=== PATIENT | female | born 1930 | race Caucasian/White ===

== ENCOUNTER 2017-11-04 16:51 | Inpatient (IN) | payer MEDICARE, BC ==
[~2017-11-04] VITALS: Ht 167.6 cm; Wt 62.6 kg
[~2017-11-04 16:51] MED LIST: ALENDRONAT70 MG/75 M PO; ASPIR-LOW81 MG ORAL; AZOPT10 ML OP; BENAZEPRIL HCL10 MG ORAL; BENAZEPRIL-HCT1 EACH ORAL; CALCIUM600 M1 PO; CEROVITE SENIO1 EACH PO; COMBIGAN EYE DRO5 ML BOTH EYES; GALANTAMINE HBR16 MG PO; HYDROCHLOROTH12.5 MG ORAL; LATANOPROST2.5 ML BOTH EYES; LEVOTHYROXINE200 MCG IV; LEVOTHYROXINE50 MCG ORAL; NAMENDA XR28 MG PO; NAMENDA5 MG ORAL; NIACIN ER500 M1 PO; NIACIN100 MG ORAL; PRESERVISION A1 EAC2 PO; PRESERVISION A1 EACH PO; PROTONIX40 MG ORAL; TYLENOL650 MG/20. ORAL; VITAMIN D1000 UNI1 ORAL; VITAMIN D400 INTLU ORAL; ZOLOFT100 MG ORAL
[2017-11-04 20:00] VITALS: BP 122/61
[2017-11-04] MEDS ORDERED: HydrALAZINE 25mg tab ORAL PRN (21:45)
--- NOTE | 2017-11-04 21:51 | History & Physical ---
History and Physical History & Physicial transfer from [facility] for Pneumonia Low BP 1. HCAP , rule out aspiration 2. UTI 3. sepsis due to the above. 4. skin pressure wound patient was significant for dementia, psych history, ulcer, neuropathy, history of shingles, chronic back pain, osteopenia, vitamin D deficiency, hypothyroidism, hyperlipemia, hypertension, seizure disorders, hypertension. # [id number] ROD VINCENT Nov 04, 2017 21:50
[2017-11-05] VITALS (7 sets, daily range): BP systolic 127–150; BP diastolic 67–96
[2017-11-05] MEDS ORDERED: cefTRIAXone 1 GM in D5W 55 ML IVPB SCH ×2
[2017-11-05 01:34] LABS: APPEARANCE,URINE CLOUDY; BILIRUBIN, URINE NEGATIVE (NEGATIVE); COLOR,URINE PALE YELLOW; GLUCOSE, URINE (UA) NEGATIVE (NEGATIVE); KETONES,URINE NEGATIVE (NEGATIVE); LEUKOCYTE ESTERASE ,URINE 3+ (NEGATIVE); NITRITE,URINE NEGATIVE (NEGATIVE); PH,URINE 5 (4.5-8.0); PROTEIN,URINE 2+ (NEGATIVE); UROBILINOGEN,URINE NORMAL MG/DL (0.0-1.0)
[2017-11-05 07:56] LABS: BASOPHILS % (AUTO) 0.4 % (0.0-2.0); EOSINOPHILS % (AUTO) 0.3 % (0.0-3.0); HEMOGLOBIN 11.5 G/DL (12.0-16.0); LYMPHOCYTES % (AUTO) 11.9 % (20.0-45.0); MEAN CORPUSCULAR VOLUME 90 FL (80-99); MONOCYTES % (AUTO) 9.6 % (1.0-10.0); NEUTROPHILS % (AUTO) 77.7 % (45.0-75.0); PLATELET COUNT 293 K/UL (150-450); RED BLOOD COUNT 3.98 M/UL (4.20-5.40); RED CELL DISTRIBUTION WIDTH 12.2 % (11.6-14.8); WHITE BLOOD COUNT 12.8 K/UL (4.8-10.8)
[2017-11-05 08:25] LABS: ALANINE AMINOTRANSFERASE 14 U/L (12-78); ALBUMIN/GLOBULIN RATIO 0.9 (1.0-2.7); ALKALINE PHOSPHATASE 54 U/L (46-116); ANION GAP 5 mmol/L (5-15); ASPARTATE AMINO TRANSFERASE 25 U/L (15-37); BILIRUBIN,TOTAL 0.6 MG/DL (0.2-1.0); BLOOD UREA NITROGEN 20 mg/dL (7-18); CALCIUM 9.2 MG/DL (8.5-10.1); CARBON DIOXIDE 29 MMOL/L (21-32); CHLORIDE 104 MMOL/L (98-107); CHOLESTEROL 139 MG/DL (< 200); CREATININE 0.8 MG/DL (0.55-1.30); GAMMA GLUTAMYL TRANSPEPTIDASE 21 U/L (5-85); HDL CHOLESTEROL 63 MG/DL (40-60); PHOSPHORUS 2.8 MG/DL (2.5-4.9); POTASSIUM 3.5 MMOL/L (3.5-5.1); SODIUM 138 MMOL/L (136-145); TRIGLYCERIDES 44 MG/DL (30-150)
[2017-11-05] MEDS: Aspirin EC 81mg tab ORAL SCH (09:18)
[2017-11-05] MEDS: Benazepril 10mg tab ORAL SCH (09:18)
[2017-11-05] MEDS: Heparin 5000 units/ml inj SUBQ SCH ×2 (09:19→20:33)
--- NOTE | 2017-11-05 09:46 | Consultation ---
Consult Note Assessment/Plan ASSESSMENT: 1. HCAP , rule out aspiration 2. UTI 3. sepsis due to the above. RECOMMENDATIONS: 1. send blood culture x2 2. send sputum culture 3. start vancomycin with cefepime empiric coverage 4. swallow eval when awake full dictation report to follow Steve De Leon M.D. Nov 05, 2017 09:46
[2017-11-05] MEDS: Sertraline 50mg tab ORAL SCH (10:49)
--- NOTE | 2017-11-05 11:39 | Consultation ---
History of Present Illness General Date patient seen: Nov 05, 2017 Chief Complaint: Dyspnea purulent bronchitis pnuemonia Referring physician: Dr. Bedoya Reason for Consultation: Health care associated pneumonia Present Illness HPI Patient is a pleasant 87 yo female with pmhx shingles, chronic back pain, osteopenia, vitamin D deficiency, hypothyroidism, hyperlipemia, hypertension, dementia, seizure disorders who presents from [facility] for insurance purposes the remainder of the patients hospitalization will be conducted here, the patient appears very toxic appearing and coughs profously during the interview with a rhoncus congested sounding cough without aid of a stethoscope. Initial CXR in the emergency room reveals maria esther right upper lobe, and the patient is being admitted to the hospital for sepsis urinary tract infection and health care associated pneumonia and possible aspiration pneumonia. I was asked to consult from respiratory point of view. The patient has been initiated on broad spectrum empiric antibiotics to treat her very serious conditions, also cultures of the patients sputum, blood and urine will be utilized to combat a likely concomittant infectious culprit. Allergies: Coded Allergies: DULOXETINE (Verified Allergy, Unknown, 09/15/16) Medication History Scheduled Alendronate Sodium (Alendronate Sodium), 70 MG PO 1xweek, (Reported) Aspirin* (Aspir-Low*), 81 MG ORAL DAILY, (Reported) Benazepril Hcl* (Benazepril Hcl*), 10 MG ORAL DAILY Benazepril/Hydrochlorothiazide (Benazepril-Hctz 10-12.5 Mg Tab), 1 TAB ORAL DAILY, (Reported) Brimonidine Tartrate/Timolol (Combigan Eye Drops), 5 ML BOTH EYES BID, (Reported ) Brinzolamide (Azopt), 10 ML OP BID, (Reported) Calcium Carbonate (Calcium), 600 MG PO DAILY, (Reported) Galantamine Hbr (Galantamine Hbr), 16 MG PO with breakfast, (Reported) Hydrochlorothiazide* (Hydrochlorothiazide*), 12.5 MG ORAL DAILY, (Reported) Latanoprost* (Xalatan*), 1 DROP BOTH EYES BEDTIME, (Reported) Levothyroxine Sodium* (Levothyroxine Sodium*), 50 MCG ORAL DAILY, (Reported) Memantine Hcl (Namenda Xr), 28 MG PO BEDTIME, (Reported) Multivitamin W-Minerals/Lutein (Cerovite Senior Tablet), 1 EACH PO DAILY, ( Reported) Niacin* (Niacin*), 250 MG ORAL BID, (Reported) Pantoprazole* (Protonix*), 40 MG ORAL DAILY Sertraline Hcl* (Zoloft*), 100 MG ORAL DAILY, (Reported) Vit A/Vit C/Vit E/Zinc/Copper (Preservision Areds Softgel), 1 EACH PO BID, ( Reported) Vitamin D (Vitamin D3), 1,000 UNITS ORAL DAILY, (Reported) Scheduled PRN Acetaminophen (Acetaminophen), 500 MG ORAL Q6H PRN for Prn Headache/Temp > 101, (Reported) Patient History Healthcare decision maker Thao Aviles Resuscitation status Full Code Advanced Directive on File Yes Past Medical/Surgical History Past Medical/Surgical History: (1) Dementia (2) Hypotension (3) Pneumonia (4) At high risk for aspiration (5) Fever (6) Sepsis (7) UTI (urinary tract infection) (8) Hypotension (9) HCAP (healthcare-associated pneumonia) (10) Fall (11) MRSA colonization (12) Acute respiratory failure Review of Systems Constitutional: Reports: fever, malaise, weakness Respiratory: Reports: cough, shortness of breath, sputum Genitourinary: Reports: dysuria Physical Exam General Appearance: mild distress Lines, tubes and drains: peripheral HEENT: normocephalic, atraumatic, anicteric, PERRL Neck: non-tender, normal alignment, supple, normal inspection Respiratory/Chest: chest wall non-tender, lungs clear, normal breath sounds, no respiratory distress, no accessory muscle use Breasts: no masses Cardiovascular/Chest: normal peripheral pulses, normal rate, regular rhythm, no JVD Abdomen: normal bowel sounds, non tender, soft, no organomegaly, no mass Genitourinary/Rectal: normal genital exam, normal rectal exam Extremities: normal range of motion, non-tender, normal inspection, no calf tenderness Skin Exam: normal pigmentation, warm/dry 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, responsive, disoriented Musculoskeletal: atrophy Last 24 Hour Vital Signs Date Time Temp Pulse Resp B/P (MAP) Pulse Ox O2 Delivery O2 Flow Rate FiO2 11/05/17 09:18 133/81 11/05/17 09:17 Room Air 11/05/17 08:00 98.1 89 20 133/81 96 11/05/17 03:35 97.3 86 20 130/69 94 11/05/17 00:00 97.4 73 19 127/69 94 11/05/17 00:00 94 Room Air 11/04/17 20:00 98.1 75 19 122/61 94 Intake and Output 11/04/17 11/05/17 19:00 07:00 Intake Total 405 ml Output Total 350 ml Balance 55 ml Intake IV Total 405 ml Output Urine Total 350 ml # Voids 2 Laboratory Tests Test 11/04/17 22:06 11/04/17 23:45 11/05/17 07:10 C-Reactive Protein, Quantitative 12.5 mg/dL (0.00-0.90) H Urine Color Pale yellow Urine Appearance Cloudy Urine pH 5 (4.5-8.0) Urine Specific [place] 1.020 (1.005-1.035) Urine Protein 2+ (NEGATIVE) H Urine Glucose (UA) Negative (NEGATIVE) Urine Ketones Negative (NEGATIVE) Urine Occult Blood 5+ (NEGATIVE) H Urine Nitrite Negative (NEGATIVE) Urine Bilirubin Negative (NEGATIVE) Urine Urobilinogen Normal MG/DL (0.0-1.0) Urine Leukocyte Esterase 3+ (NEGATIVE) H Urine RBC Tntc /HPF (0 - 2) H Urine WBC 20-30 /HPF (0 - 2) H Urine Squamous Epithelial Cells Moderate /LPF (NONE/OCC) H Urine Bacteria Moderate /HPF (NONE) H Urine Mucus Few /LPF (NONE/OCC) H White Blood Count 12.8 K/UL (4.8-10.8) H Red Blood Count 3.98 M/UL (4.20-5.40) L Hemoglobin 11.5 G/DL (12.0-16.0) L Hematocrit 36.0 % (37.0-47.0) L Mean Corpuscular Volume 90 FL (80-99) Mean Corpuscular Hemoglobin 29.0 PG (27.0-31.0) Mean Corpuscular Hemoglobin Concent 32.1 G/DL (32.0-36.0) Red Cell Distribution Width 12.2 % (11.6-14.8) Platelet Count 293 K/UL (150-450) Mean Platelet Volume 5.5 FL (6.5-10.1) L Neutrophils (%) (Auto) 77.7 % (45.0-75.0) H Lymphocytes (%) (Auto) 11.9 % (20.0-45.0) L Monocytes (%) (Auto) 9.6 % (1.0-10.0) Eosinophils (%) (Auto) 0.3 % (0.0-3.0) Basophils (%) (Auto) 0.4 % (0.0-2.0) Sodium Level 138 MMOL/L (136-145) Potassium Level 3.5 MMOL/L (3.5-5.1) Chloride Level 104 MMOL/L (98-107) Carbon Dioxide Level 29 MMOL/L (21-32) Anion Gap 5 mmol/L (5-15) Blood Urea Nitrogen 20 mg/dL (7-18) H Creatinine 0.8 MG/DL (0.55-1.30) Estimat Glomerular Filtration Rate mL/min (>60) Glucose Level 97 MG/DL (74-106) Hemoglobin A1c 5.7 % (4.3-6.0) Uric Acid 4.6 MG/DL (2.6-7.2) Calcium Level 9.2 MG/DL (8.5-10.1) Phosphorus Level 2.8 MG/DL (2.5-4.9) Magnesium Level 1.6 MG/DL (1.8-2.4) L Total Bilirubin 0.6 MG/DL (0.2-1.0) Gamma Glutamyl Transpeptidase 21 U/L (5-85) Aspartate Amino Transf (AST/SGOT) 25 U/L (15-37) Alanine Aminotransferase (ALT/SGPT) 14 U/L (12-78) Alkaline Phosphatase 54 U/L (46-116) Pro-B-Type Natriuretic Peptide 1679 pg/mL (0-125) H Total Protein 6.2 G/DL (6.4-8.2) L Albumin 3.0 G/DL (3.4-5.0) L Globulin 3.2 g/dL Albumin/Globulin Ratio 0.9 (1.0-2.7) L Triglycerides Level 44 MG/DL (30-150) Cholesterol Level 139 MG/DL (< 200) LDL Cholesterol 69 mg/dL (<100) HDL Cholesterol 63 MG/DL (40-60) H Cholesterol/HDL Ratio 2.2 (3.3-4.4) L Thyroid Stimulating Hormone (TSH) 0.132 uiU/mL (0.358-3.740) Height (Feet): 5 Height (Inches): 6.00 Weight (Pounds): 138 Medications Current Medications Medications (Trade) Dose Ordered Sig/Uday Route PRN Reason Start Time Stop Time Status Last Admin Dose Admin Acetaminophen (Tylenol) 500 mg Q6H PRN ORAL Prn Headache/Temp > 101 11/04/17 23:15 12/04/17 23:14 Aspirin (Ecotrin) 81 mg DAILY ORAL 11/05/17 09:00 12/05/17 08:59 11/05/17 09:18 Benazepril HCl (Lotensin) 10 mg DAILY ORAL 11/05/17 09:00 12/05/17 08:59 11/05/17 09:18 Cefepime HCl 2 gm/ Dextrose 55 ml @ 110 mls/hr Q24H IVPB 11/05/17 21:00 11/12/17 20:59 Dextrose/Sodium Chloride 1,000 ml @ 50 mls/hr Q20H IV 11/05/17 00:00 12/05/17 00:00 11/05/17 00:00 Heparin Sodium (Porcine) (Heparin 5000 units/ml) 5,000 units EVERY 12 HOURS SUBQ 11/05/17 09:00 12/05/17 08:59 11/05/17 09:19 Hydralazine HCl (Apresoline) 25 mg Q4HR PRN ORAL bp over 160 syst 11/04/17 21:45 12/04/17 21:44 Latanoprost (Xalatan) 1 drop BEDTIME BOTH EYES 11/05/17 21:00 12/05/17 20:59 Levothyroxine Sodium (Synthroid) 50 mcg ACBREAKFAST ORAL 11/05/17 06:30 12/05/17 06:29 11/05/17 05:48 Magnesium Sulfate 100 ml @ 100 mls/hr Q1H IVPB 11/05/17 11:00 11/05/17 12:59 Ondansetron HCl (Zofran) 4 mg Q6H PRN IVP Nausea & Vomiting 11/04/17 21:45 12/04/17 21:44 Pantoprazole (Protonix) 40 mg DAILY ORAL 11/05/17 09:00 12/05/17 08:59 11/05/17 09:18 Sertraline HCl (Zoloft) 50 mg DAILY ORAL 11/05/17 10:00 12/05/17 09:59 11/05/17 10:49 Vancomycin HCl (Vanco rx to dose) 1 ea DAILY PRN MISC Per rx protocol 11/05/17 11:00 12/05/17 10:59 Vancomycin HCl 1 gm/Dextrose 275 ml @ 183.708 mls/hr Q24H IVPB 11/05/17 12:00 11/10/17 11:59 Assessment/Plan Problem List: (1) Pneumonia ICD Codes: J18.9 - Pneumonia, unspecified organism SNOMED: 483833134 Qualifiers: Qualified Codes: J69.0 - Pneumonitis due to inhalation of food and vomit (2) At high risk for aspiration ICD Codes: Z91.89 - Other specified personal risk factors, not elsewhere classified SNOMED: 132641342 (3) Hypotension ICD Codes: I95.9 - Hypotension, unspecified SNOMED: 59883509 Qualifiers: Qualified Codes: I95.9 - Hypotension, unspecified (4) Dementia ICD Codes: F03.90 - Unspecified dementia without behavioral disturbance SNOMED: 86656173 Qualifiers: Qualified Codes: F03.91 - Unspecified dementia with behavioral disturbance Status: not improved Assessment/Plan respiratory treatment panculture titrate fio2 to sat of 92% check cultures abx dvt prophylaxis. ANNETTE ANDERSON Nov 05, 2017 11:39
[2017-11-05] MEDS: Vancomycin 1gm/D5W 275ml IVPB SCH ×2 (12:30)
--- NOTE | 2017-11-05 18:18 | History and Physical Report ---
DATE OF ADMISSION: 11/04/2017 HISTORY OF PRESENT ILLNESS: The patient is an 87-year-old female, who was transferred to [place] [facility] with vague history of weakness. After the patient was evaluated there, I received a call that the patient had leukocytosis, evidence of pneumonia, and UTI. The patient is now transferred here for further management from [facility]. PAST MEDICAL HISTORY: Past history of the patient is significant for dementia, psychiatric history, polyneuropathy, ulcers, history of shingles, chronic back pain, osteopenia, vitamin D deficiency, hypothyroidism, hyperlipemia, hypertension, seizure disorder, and glaucoma. ALLERGIES: To duloxetine. PHYSICAL EXAMINATION: VITAL SIGNS: On examination today, the patient was found to have a temperature of 98.1 degrees, pulse rate of 89, blood pressure of 133/81. GENERAL: Poor historian, not in any distress. HEENT: Head is normocephalic. Sclerae not icteric. LUNGS: No wheeze. Decreased breath sounds over the bases. BREASTS: Area of right breast mastectomy and scar over the left shoulder. HEART: Regular with occasional irregular beats. ABDOMEN: Soft. EXTREMITIES: Lower extremities, no edema. Weak extremities. LABORATORY AND DIAGNOSTIC DATA: The lab data for today at [place] is C-reactive protein of 12.5. Pro-natriuretic peptic assay of 1679. TSH of 0.1. Urine shows 30 WBCs, 3+ leukocyte esterase. of 12.8 and hemoglobin of 11.5. IMPRESSION: This patient has pneumonia, which aspiration needs to be ruled out based on chest x-ray at [place]. The patient has evidence of urinary tract infection and also the patient has past history of dementia, seizure disorder, hypertension, hyperlipemia, hypothyroidism, vitamin D deficiency, shingles, and psychiatric history. PLAN: The Infectious Disease sap consultant has put the patient on cefepime and vancomycin. At this point, we will give breathing treatment and we will monitor the labs and according to how the patient's condition evolves, we will make the proper changes in our future management. Robson Montero M.D. DR: Adelfo JOB#: [id number] CC:
[2017-11-05] MEDS: Acetaminophen 500mg (ES) tab ORAL PRN (18:29)
[2017-11-05] MEDS: D5NS 1,000 ML IV SCH ×3 (20:00→23:00)
[2017-11-05] MEDS: Cefepime HCl 2 GM in D5W 55 ML IVPB SCH (20:28)
[2017-11-05] MEDS: Latanoprost 0.005% Opth 2.5ml Soln BOTH EYES SCH (21:11)
[2017-11-06] VITALS: BP 158/86
[2017-11-06 04:00] VITALS: BP 154/93
[2017-11-06 07:48] VITALS: BP 161/86
[2017-11-06 08:16] LABS: BASOPHILS % (AUTO) 0.4 % (0.0-2.0); EOSINOPHILS % (AUTO) 0.1 % (0.0-3.0); HEMATOCRIT 39.5 % (37.0-47.0); LYMPHOCYTES % (AUTO) 6.7 % (20.0-45.0); MEAN CORPUSCULAR VOLUME 90 FL (80-99); MONOCYTES % (AUTO) 8.5 % (1.0-10.0); NEUTROPHILS % (AUTO) 84.3 % (45.0-75.0); PLATELET COUNT 287 K/UL (150-450); RED BLOOD COUNT 4.38 M/UL (4.20-5.40); WHITE BLOOD COUNT 14.9 K/UL (4.8-10.8)
[2017-11-06 08:43] LABS: ALANINE AMINOTRANSFERASE 19 U/L (12-78); ALBUMIN 3.2 G/DL (3.4-5.0); ALBUMIN/GLOBULIN RATIO 0.8 (1.0-2.7); ALKALINE PHOSPHATASE 70 U/L (46-116); ANION GAP 11 mmol/L (5-15); ASPARTATE AMINO TRANSFERASE 27 U/L (15-37); BLOOD UREA NITROGEN 12 mg/dL (7-18); CALCIUM 9.3 MG/DL (8.5-10.1); CARBON DIOXIDE 24 MMOL/L (21-32); CHLORIDE 101 MMOL/L (98-107); CREATININE 0.7 MG/DL (0.55-1.30); POTASSIUM 3.7 MMOL/L (3.5-5.1); SODIUM 136 MMOL/L (136-145)
[2017-11-06] MEDS: Aspirin EC 81mg tab ORAL SCH (09:53)
[2017-11-06] MEDS: Benazepril 10mg tab ORAL SCH ×2 (09:54→17:29)
[2017-11-06] MEDS: Sertraline 50mg tab ORAL SCH (09:54)
[2017-11-06] MEDS: Heparin 5000 units/ml inj SUBQ SCH ×2 (09:55→20:07)
[2017-11-06] MEDS: Vancomycin 1gm/D5W 275ml IVPB SCH ×2 (11:35)
--- NOTE | 2017-11-06 11:49 | Diagnostic Imaging Report ---
Indication: Cough Technique: One view of the chest Comparison: 09/15/2016 Findings: There is persistent elevation of the right hemidiaphragm. Suspect that there is now some pleural fluid present. Interstitial opacities are again demonstrated bilaterally, appears somewhat more pronounced than on the prior study. There is some hazy airspace opacity in the right upper lobe The heart size is difficult to assess, probably upper limits of normal. Degenerative changes of the right shoulder and postsurgical changes of left shoulder are again noted Impression: Suspect mostly chronic interstitial disease, but component of acute interstitial edema or other process Possible hazy infiltrate in the right upper lobe. Correlate with clinical findings Suspect right pleural effusion
[2017-11-06 12:00] VITALS: BP 153/89
--- NOTE | 2017-11-06 14:13 | Infectious Diseases Prog Note ---
Assessment/Plan Problems: (1) HCAP (healthcare-associated pneumonia) Assessment & Plan: continue vancomycin and cefepime empiric coverage pending sputum culture, repeat CXR , start neb therapy (2) UTI (urinary tract infection) Assessment & Plan: continue cefepime pending culture results (3) Sepsis Assessment & Plan: due to the above, on wide spectrum antibiotics pending blood culture (4) Fever Assessment & Plan: improved , continue antibiotics and tylenol (5) Hypotension Assessment & Plan: rule out sepsis , continue antibiotics pending culture Subjective ROS Limited/Unobtainable: Yes Allergies: Coded Allergies: DULOXETINE (Verified Allergy, Unknown, 09/15/16) Subjective she was up in bed, awake and alert, follows some commands, had mild SOB, no cough , no fever or chills today , no diarrhea . Objective Vital Signs Last 24 Hour Vital Signs Date Time Temp Pulse Resp B/P (MAP) Pulse Ox O2 Delivery O2 Flow Rate FiO2 11/06/17 12:00 98.4 88 18 153/89 94 Nasal Cannula 2.0 11/06/17 09:54 161/86 11/06/17 07:48 98.6 95 18 161/86 95 Nasal Cannula 2.0 11/06/17 04:00 99.3 90 20 154/93 93 Nasal Cannula 2.0 11/06/17 00:00 98.4 95 20 158/86 92 Room Air 11/05/17 20:00 Room Air 11/05/17 20:00 97.9 100 21 150/91 88 11/05/17 19:28 97.9 11/05/17 18:40 101.8 106 20 145/67 92 11/05/17 16:00 98.4 114 20 143/96 94 Height (Feet): 5 Height (Inches): 6.00 Weight (Pounds): 138 General Appearance: WD/WN, no acute distress HEENT: normocephalic, atraumatic, anicteric, mucous membranes moist, PERRL, supple, no JVD Respiratory/Chest: chest wall non-tender, no respiratory distress, no accessory muscle use, decreased breath sounds, inspiratory wheezing Cardiovascular: normal peripheral pulses, normal rate, regular rhythm, no gallop/murmur, no JVD Abdomen: normal bowel sounds, soft, non tender, no organomegaly, non distended , no mass, no scars Extremities: no cyanosis, no clubbing Skin: no rash, no lesions, no ulcers Neurologic/Psychiatric: alert, responsive Lymphatic: no neck adenopathy, no groin adenopathy Microbiology Date/Time Source Procedure Growth Status 11/04/17 23:45 Indwelling Cath Urine Culture - Preliminary NO GROWTH AFTER 24 HOURS Resulted Laboratory Tests Test 11/06/17 05:25 White Blood Count 14.9 K/UL (4.8-10.8) H Red Blood Count 4.38 M/UL (4.20-5.40) Hemoglobin 13.0 G/DL (12.0-16.0) Hematocrit 39.5 % (37.0-47.0) Mean Corpuscular Volume 90 FL (80-99) Mean Corpuscular Hemoglobin 29.6 PG (27.0-31.0) Mean Corpuscular Hemoglobin Concent 32.9 G/DL (32.0-36.0) Red Cell Distribution Width 12.0 % (11.6-14.8) Platelet Count 287 K/UL (150-450) Mean Platelet Volume 5.5 FL (6.5-10.1) L Neutrophils (%) (Auto) 84.3 % (45.0-75.0) H Lymphocytes (%) (Auto) 6.7 % (20.0-45.0) L Monocytes (%) (Auto) 8.5 % (1.0-10.0) Eosinophils (%) (Auto) 0.1 % (0.0-3.0) Basophils (%) (Auto) 0.4 % (0.0-2.0) Sodium Level 136 MMOL/L (136-145) Potassium Level 3.7 MMOL/L (3.5-5.1) Chloride Level 101 MMOL/L (98-107) Carbon Dioxide Level 24 MMOL/L (21-32) Anion Gap 11 mmol/L (5-15) Blood Urea Nitrogen 12 mg/dL (7-18) Creatinine 0.7 MG/DL (0.55-1.30) Estimat Glomerular Filtration Rate mL/min (>60) Glucose Level 111 MG/DL (74-106) H Calcium Level 9.3 MG/DL (8.5-10.1) Total Bilirubin 1.0 MG/DL (0.2-1.0) Aspartate Amino Transf (AST/SGOT) 27 U/L (15-37) Alanine Aminotransferase (ALT/SGPT) 19 U/L (12-78) Alkaline Phosphatase 70 U/L (46-116) Pro-B-Type Natriuretic Peptide 4886 pg/mL (0-125) H Total Protein 7.2 G/DL (6.4-8.2) Albumin 3.2 G/DL (3.4-5.0) L Globulin 4.0 g/dL Albumin/Globulin Ratio 0.8 (1.0-2.7) L Current Medications Medications (Trade) Dose Ordered Sig/Uday Route PRN Reason Start Time Stop Time Status Last Admin Dose Admin Acetaminophen (Tylenol) 500 mg Q6H PRN ORAL Prn Headache/Temp > 101 11/04/17 23:15 12/04/17 23:14 11/05/17 18:29 Albuterol/ Ipratropium (Albuterol/ Ipratropium) 3 ml Q6HR PRN HHN Shortness of Breath 11/06/17 13:15 11/11/17 13:14 Aspirin (Ecotrin) 81 mg DAILY ORAL 11/05/17 09:00 12/05/17 08:59 11/06/17 09:53 Benazepril HCl (Lotensin) 10 mg DAILY ORAL 11/05/17 09:00 12/05/17 08:59 11/06/17 09:54 Cefepime HCl 2 gm/ Dextrose 55 ml @ 110 mls/hr Q24H IVPB 11/05/17 21:00 11/12/17 20:59 11/05/17 20:28 Dextrose/Sodium Chloride 1,000 ml @ 50 mls/hr Q20H IV 11/05/17 00:00 12/05/17 00:00 11/05/17 23:00 Heparin Sodium (Porcine) (Heparin 5000 units/ml) 5,000 units EVERY 12 HOURS SUBQ 11/05/17 09:00 12/05/17 08:59 11/06/17 09:55 Hydralazine HCl (Apresoline) 25 mg Q4HR PRN ORAL bp over 160 syst 11/04/17 21:45 12/04/17 21:44 Latanoprost (Xalatan) 1 drop BEDTIME BOTH EYES 11/05/17 21:00 12/05/17 20:59 11/05/17 21:11 Levothyroxine Sodium (Synthroid) 50 mcg ACBREAKFAST ORAL 11/05/17 06:30 12/05/17 06:29 11/06/17 06:27 Ondansetron HCl (Zofran) 4 mg Q6H PRN IVP Nausea & Vomiting 11/04/17 21:45 12/04/17 21:44 Pantoprazole (Protonix) 40 mg DAILY ORAL 11/05/17 09:00 12/05/17 08:59 11/06/17 09:54 Sertraline HCl (Zoloft) 50 mg DAILY ORAL 11/05/17 10:00 12/05/17 09:59 11/06/17 09:54 Vancomycin HCl (Vanco rx to dose) 1 ea DAILY PRN MISC Per rx protocol 11/05/17 11:00 12/05/17 10:59 Vancomycin HCl 1 gm/Dextrose 275 ml @ 183.708 mls/hr Q24H IVPB 11/05/17 12:00 11/10/17 11:59 11/06/17 11:35 Steve De Leon M.D. Nov 06, 2017 14:12
[2017-11-06 16:00] VITALS: BP 153/99
--- NOTE | 2017-11-06 16:27 | General Progress Note ---
Assessment/Plan Problem List: (1) Pneumonia ICD Codes: J18.9 - Pneumonia, unspecified organism SNOMED: 402360000 (2) Hypotension ICD Codes: I95.9 - Hypotension, unspecified SNOMED: 14030186 (3) UTI (urinary tract infection) ICD Codes: N39.0 - Urinary tract infection, site not specified SNOMED: 27250680 (4) At high risk for aspiration ICD Codes: Z91.89 - Other specified personal risk factors, not elsewhere classified SNOMED: 220222194 (5) Dementia ICD Codes: F03.90 - Unspecified dementia without behavioral disturbance SNOMED: 59411648 Status: unchanged Status Narrative pneumonia, which aspiration needs to be ruled out The patient has evidence of urinary tract infection . Presented with LOw BP dementia, seizure disorder, hypertension, hyperlipemia, hypothyroidism, vitamin D deficiency, shingles, and psychiatric history. Assessment/Plan AntiBiotics St eval. pulmonary toilet monitor labs Subjective ROS Limited/Unobtainable: No Constitutional: Reports: malaise, weakness Allergies: Coded Allergies: DULOXETINE (Verified Allergy, Unknown, 09/15/16) Objective Last 24 Hour Vital Signs Date Time Temp Pulse Resp B/P (MAP) Pulse Ox O2 Delivery O2 Flow Rate FiO2 11/06/17 16:00 98.8 94 20 153/99 93 Nasal Cannula 2.0 11/06/17 12:00 98.4 88 18 153/89 94 Nasal Cannula 2.0 11/06/17 09:54 161/86 11/06/17 07:48 98.6 95 18 161/86 95 Nasal Cannula 2.0 11/06/17 04:00 99.3 90 20 154/93 93 Nasal Cannula 2.0 11/06/17 00:00 98.4 95 20 158/86 92 Room Air 11/05/17 20:00 Room Air 11/05/17 20:00 97.9 100 21 150/91 88 11/05/17 19:28 97.9 11/05/17 18:40 101.8 106 20 145/67 92 Intake and Output 11/05/17 11/06/17 19:00 07:00 Intake Total 1215.000 ml 770 ml Output Total 500 ml 600 ml Balance 715.000 ml 170 ml Intake Oral 240 ml 240 ml IV Total 975.000 ml 530 ml Output Urine Total 500 ml 600 ml # Bowel Movements 1 Laboratory Tests 11/06/17 05:25: White Blood Count 14.9H, Red Blood Count 4.38, Hemoglobin 13.0, Hematocrit 39.5 , Mean Corpuscular Volume 90, Mean Corpuscular Hemoglobin 29.6, Mean Corpuscular Hemoglobin Concent 32.9, Red Cell Distribution Width 12.0, Platelet Count 287, Mean Platelet Volume 5.5L, Neutrophils (%) (Auto) 84.3H, Lymphocytes (%) (Auto) 6.7L, Monocytes (%) (Auto) 8.5, Eosinophils (%) (Auto) 0.1, Basophils (%) (Auto) 0.4, Sodium Level 136, Potassium Level 3.7, Chloride Level 101, Carbon Dioxide Level 24, Anion Gap 11, Blood Urea Nitrogen 12, Creatinine 0.7, Estimat Glomerular Filtration Rate , Glucose Level 111H, Calcium Level 9.3 , Total Bilirubin 1.0, Aspartate Amino Transf (AST/SGOT) 27, Alanine Aminotransferase (ALT/SGPT) 19, Alkaline Phosphatase 70, Pro-B-Type Natriuretic Peptide 4886H, Total Protein 7.2, Albumin 3.2L, Globulin 4.0, Albumin/Globulin Ratio 0.8L Height (Feet): 5 Height (Inches): 6.00 Weight (Pounds): 138 General Appearance: no apparent distress, lethargic Neck: limited range of motion Cardiovascular: normal rate Respiratory/Chest: decreased breath sounds Abdomen: distended Neurologic: other - slow , confused Objective no other changes ROD VINCENT Nov 06, 2017 16:27
--- NOTE | 2017-11-06 16:49 | Pulmonology Progress Note ---
Assessment/Plan Problems: (1) Pneumonia (2) At high risk for aspiration (3) Hypotension (4) Dementia Assessment/Plan wbc higher cultures pending chest pt eating well, titrate fio2 to sat of 92 chest pt continue IV abx. Subjective ROS Limited/Unobtainable: No Interval Events: confused Allergies: Coded Allergies: DULOXETINE (Verified Allergy, Unknown, 09/15/16) Objective Last 24 Hour Vital Signs Date Time Temp Pulse Resp B/P (MAP) Pulse Ox O2 Delivery O2 Flow Rate FiO2 11/06/17 16:00 98.8 94 20 153/99 93 Nasal Cannula 2.0 11/06/17 12:00 98.4 88 18 153/89 94 Nasal Cannula 2.0 11/06/17 09:54 161/86 11/06/17 07:48 98.6 95 18 161/86 95 Nasal Cannula 2.0 11/06/17 04:00 99.3 90 20 154/93 93 Nasal Cannula 2.0 11/06/17 00:00 98.4 95 20 158/86 92 Room Air 11/05/17 20:00 Room Air 11/05/17 20:00 97.9 100 21 150/91 88 11/05/17 19:28 97.9 11/05/17 18:40 101.8 106 20 145/67 92 Intake and Output 11/05/17 11/06/17 19:00 07:00 Intake Total 1215.000 ml 770 ml Output Total 500 ml 600 ml Balance 715.000 ml 170 ml Intake Oral 240 ml 240 ml IV Total 975.000 ml 530 ml Output Urine Total 500 ml 600 ml # Bowel Movements 1 General Appearance: WD/WN HEENT: normocephalic, atraumatic Respiratory/Chest: chest wall non-tender, lungs clear Breasts: no masses Cardiovascular: normal peripheral pulses, normal rate Abdomen: normal bowel sounds, soft, non tender Genitourinary: normal external genitalia Extremities: no cyanosis Skin: no lesions 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 Lymphatic: no neck adenopathy Microbiology Date/Time Source Procedure Growth Status 11/04/17 23:45 Indwelling Cath Urine Culture - Preliminary NO GROWTH AFTER 24 HOURS Resulted Laboratory Tests 11/06/17 05:25: White Blood Count 14.9H, Red Blood Count 4.38, Hemoglobin 13.0, Hematocrit 39.5 , Mean Corpuscular Volume 90, Mean Corpuscular Hemoglobin 29.6, Mean Corpuscular Hemoglobin Concent 32.9, Red Cell Distribution Width 12.0, Platelet Count 287, Mean Platelet Volume 5.5L, Neutrophils (%) (Auto) 84.3H, Lymphocytes (%) (Auto) 6.7L, Monocytes (%) (Auto) 8.5, Eosinophils (%) (Auto) 0.1, Basophils (%) (Auto) 0.4, Sodium Level 136, Potassium Level 3.7, Chloride Level 101, Carbon Dioxide Level 24, Anion Gap 11, Blood Urea Nitrogen 12, Creatinine 0.7, Estimat Glomerular Filtration Rate , Glucose Level 111H, Calcium Level 9.3 , Total Bilirubin 1.0, Aspartate Amino Transf (AST/SGOT) 27, Alanine Aminotransferase (ALT/SGPT) 19, Alkaline Phosphatase 70, Pro-B-Type Natriuretic Peptide 4886H, Total Protein 7.2, Albumin 3.2L, Globulin 4.0, Albumin/Globulin Ratio 0.8L 11/06/17 06:00: C-Reactive Protein, Quantitative [Pending] Current Medications Medications (Trade) Dose Ordered Sig/Uday Route PRN Reason Start Time Stop Time Status Last Admin Dose Admin Acetaminophen (Tylenol) 500 mg Q6H PRN ORAL Prn Headache/Temp > 101 11/04/17 23:15 12/04/17 23:14 11/05/17 18:29 Albuterol/ Ipratropium (Albuterol/ Ipratropium) 3 ml Q6HR PRN HHN Shortness of Breath 11/06/17 13:15 11/11/17 13:14 Aspirin (Ecotrin) 81 mg DAILY ORAL 11/05/17 09:00 12/05/17 08:59 11/06/17 09:53 Benazepril HCl (Lotensin) 10 mg BID ORAL 11/06/17 18:00 12/05/17 08:59 Cefepime HCl 2 gm/ Dextrose 55 ml @ 110 mls/hr Q24H IVPB 11/05/17 21:00 11/12/17 20:59 11/05/17 20:28 Dextrose/Sodium Chloride 1,000 ml @ 50 mls/hr Q20H IV 11/05/17 00:00 12/05/17 00:00 11/05/17 23:00 Heparin Sodium (Porcine) (Heparin 5000 units/ml) 5,000 units EVERY 12 HOURS SUBQ 11/05/17 09:00 12/05/17 08:59 11/06/17 09:55 Hydralazine HCl (Apresoline) 25 mg Q4HR PRN ORAL bp over 160 syst 11/04/17 21:45 12/04/17 21:44 Latanoprost (Xalatan) 1 drop BEDTIME BOTH EYES 11/05/17 21:00 12/05/17 20:59 11/05/17 21:11 Levothyroxine Sodium (Synthroid) 50 mcg ACBREAKFAST ORAL 11/05/17 06:30 12/05/17 06:29 11/06/17 06:27 Ondansetron HCl (Zofran) 4 mg Q6H PRN IVP Nausea & Vomiting 11/04/17 21:45 12/04/17 21:44 Pantoprazole (Protonix) 40 mg DAILY ORAL 11/05/17 09:00 12/05/17 08:59 11/06/17 09:54 Sertraline HCl (Zoloft) 50 mg DAILY ORAL 11/05/17 10:00 12/05/17 09:59 11/06/17 09:54 Vancomycin HCl (Vanco rx to dose) 1 ea DAILY PRN MISC Per rx protocol 11/05/17 11:00 12/05/17 10:59 Vancomycin HCl 1 gm/Dextrose 275 ml @ 183.708 mls/hr Q24H IVPB 11/05/17 12:00 11/10/17 11:59 11/06/17 11:35 ANNETTE ANDERSON Nov 06, 2017 16:49
--- NOTE | 2017-11-06 18:24 | Cardiology Report ---
APPROVED REPORT EXAM: Two-dimensional and M-mode echocardiogram with Doppler and color Doppler. INDICATION Congestive Heart Failure M-Mode DIMENSIONS IVSd1.3 (0.7-1.1cm)Left Atrium (MM)1.8 (1.6-4.0cm) LVDd4.1 (3.5-5.6cm)Aortic Root2.7 (2.0-3.7cm) PWd1.2 (0.7-1.1cm)Aortic Cusp Exc.1.6 (1.5-2.0cm) LVDs2.6 (2.5-4.0cm) PWs1.3 cm Normal left ventricular chamber size, systolic function and wall motion. Left ventricular ejection fraction estimated to be 55-60%. Mild left ventricular hypertrophy. No evidence of pericardial or pleural effusion. All other cardiac chamber sizes are within normal limits. Focal aortic valve sclerosis with adequate cusp excursion. Thickened mitral valve leaflets with normal excursion. Mild mitral annulus and aortic root calcification. Pulmonic valve not well visualized. Normal tricuspid valve structure. IVC is normal in size with no physiological collapse. RA pressure of 10mmHg. A color flow and spectral Doppler study was performed and revealed: No aortic regurgitation. Trace mitral regurgitation. Mitral diastolic velocities suggest reduced left ventricular relaxation c/w diastolic dysfunction grade 1. Mild tricuspid regurgitation. Tricuspid systolic velocities suggests peak right ventricular systolic pressure of 31mmHg Pulmonic regurgitation present.
[2017-11-06 20:00] VITALS: BP 142/77
[2017-11-06] MEDS: Cefepime HCl 2 GM in D5W 55 ML IVPB SCH (20:05)
[2017-11-06] MEDS: Latanoprost 0.005% Opth 2.5ml Soln BOTH EYES SCH (20:06)
--- NOTE | 2017-11-06 21:00 | Consultation ---
DATE OF CONSULTATION: 11/05/2017 INFECTIOUS DISEASE CONSULTATION REQUESTING PHYSICIAN: Robson Montero M.D. REASON FOR CONSULTATION: Pneumonia, sepsis urinary tract infection, possible aspiration. Recommendation for antibiotics treatment and further management. HISTORY OF PRESENT ILLNESS: The patient is an 87-year-old female with past medical history of dementia and psychiatric disorder, shingles, osteopenia, hypothyroidism, hyperlipidemia, hypertension, seizure disorder, and glaucoma, was admitted to [facility] with generalized weakness. The patient was found to have pneumonia on chest x-ray with significant leukocytosis and urine tract infection over there. So, she was transferred subsequently to [facility] for further care and management and I was asked by the primary provider for antibiotics treatment and further management of her pneumonia, sepsis and urinary tract infection. As of note, the patient has dementia, poor historian, cannot provide any history. History was mainly obtained from the medical record and nursing staff. PAST MEDICAL HISTORY: Significant for glaucoma, seizure disorder, hypertension, hyperlipidemia, hypothyroidism, vitamin D deficiency, osteopenia, chronic back pain, shingles, polyneuropathy, psychiatric disorder and dementia. PAST SURGICAL HISTORY: Not on record. MEDICATIONS: Please refer to the medical record at [facility] for further details. ALLERGIES: She is allergic to duloxetine. SOCIAL HISTORY: The patient lives at the assisted living facility. No recent drugs, tobacco, or alcohol. REVIEW OF SYSTEMS: Unable to obtain at this point. The patient is a poor historian. PHYSICAL EXAMINATION: GENERAL: Elderly female, lying in bed, awake, alert, not in acute distress. VITAL SIGNS: Temperature 98.1 degrees, pulse 87, respirations 20, blood pressure 128/84 and saturation 94% on room air. HEENT: Normocephalic and atraumatic. Pupils react to light. Pale sclerae. Dry oral mucosa. No exudate or thrush. No ulcers. NECK: Supple. No lymphadenopathy. CARDIOVASCULAR: She is tachycardic. S1 and S2 normal. No murmur or gallop. LUNGS: She had expiratory wheezing with diminished breathing sounds at the bases. ABDOMEN: Soft, nontender, and nondistended. Positive bowel sounds. No hepatosplenomegaly. No ascites. EXTREMITIES: No edema or cyanosis. No clubbing. SKIN: No rash. No hives. LABORATORY AND DIAGNOSTIC DATA: Laboratory showed white count of 12.8, hemoglobin of 11.5 and platelet count of 293. BUN of 12 and creatinine of 0.7. Urinalysis showed +3 leukocyte esterase, WBC 20 to 30 and moderate amount of bacteria. Imaging, chest x-ray showed interstitial disease, but component of acute interstitial edema or other process cannot be excluded. Possible hazy infiltrate in the right upper lobe with right pleural effusion. ASSESSMENT AND RECOMMENDATION: 1. Healthcare-acquired pneumonia, rule out aspiration. We will start the patient empirically on vancomycin and cefepime. Recommend to keep head of bed more than 30 degree all the time. We will send sputum culture. Recommend swallow evaluation. 2. Urinary tract infection. The patient will be on cefepime. We will send urine culture pending results. 3. Sepsis due to the above with leukocytosis and fever. The patient will be on wide-spectrum antibiotics with vancomycin and cefepime empiric coverage pending blood culture results. Thank you for the consultation. Infectious Disease will continue to follow. Please feel free to call with any question. Steve De Leon M.D. DR: MERLENE JOB#: [id number] CC:
--- NOTE | 2017-11-06 22:53 | Consultation ---
History of Present Illness General Date patient seen: Nov 05, 2017 Present Illness HPI 87-year-old female, who was transferred to [facility] with cc of weakness. the patient had leukocytosis, evidence of pneumonia, and UTI. During the eval the pt pw waxing and waning of consciousness. the pt is unable to provide any hx. has memory impairment. Allergies: Coded Allergies: DULOXETINE (Verified Allergy, Unknown, 09/15/16) Medication History Scheduled Alendronate Sodium (Alendronate Sodium), 70 MG PO 1xweek, (Reported) Aspirin* (Aspir-Low*), 81 MG ORAL DAILY, (Reported) Benazepril Hcl* (Benazepril Hcl*), 10 MG ORAL DAILY Benazepril/Hydrochlorothiazide (Benazepril-Hctz 10-12.5 Mg Tab), 1 TAB ORAL DAILY, (Reported) Brimonidine Tartrate/Timolol (Combigan Eye Drops), 5 ML BOTH EYES BID, (Reported ) Brinzolamide (Azopt), 10 ML OP BID, (Reported) Calcium Carbonate (Calcium), 600 MG PO DAILY, (Reported) Galantamine Hbr (Galantamine Hbr), 16 MG PO with breakfast, (Reported) Hydrochlorothiazide* (Hydrochlorothiazide*), 12.5 MG ORAL DAILY, (Reported) Latanoprost* (Xalatan*), 1 DROP BOTH EYES BEDTIME, (Reported) Levothyroxine Sodium* (Levothyroxine Sodium*), 50 MCG ORAL DAILY, (Reported) Memantine Hcl (Namenda Xr), 28 MG PO BEDTIME, (Reported) Multivitamin W-Minerals/Lutein (Cerovite Senior Tablet), 1 EACH PO DAILY, ( Reported) Niacin* (Niacin*), 250 MG ORAL BID, (Reported) Pantoprazole* (Protonix*), 40 MG ORAL DAILY Sertraline Hcl* (Zoloft*), 100 MG ORAL DAILY, (Reported) Vit A/Vit C/Vit E/Zinc/Copper (Preservision Areds Softgel), 1 EACH PO BID, ( Reported) Vitamin D (Vitamin D3), 1,000 UNITS ORAL DAILY, (Reported) Scheduled PRN Acetaminophen (Acetaminophen), 500 MG ORAL Q6H PRN for Prn Headache/Temp > 101, (Reported) Patient History Limited by: medical condition History Provided By: Patient, Medical Record, PMD Healthcare decision maker Thao Aviles Resuscitation status Full Code Advanced Directive on File Yes Past Medical/Surgical History Past Medical/Surgical History: (1) Fall (2) Dementia (3) Hypotension (4) Pneumonia (5) At high risk for aspiration (6) Fever (7) Sepsis (8) UTI (urinary tract infection) (9) Hypotension (10) HCAP (healthcare-associated pneumonia) Review of Systems Psychiatric: Reports: prior hx, anxiety, depressed feelings, emotional problems Physical Exam General Appearance: no apparent distress, confused Neurologic: depressed affect Last 24 Hour Vital Signs Date Time Temp Pulse Resp B/P (MAP) Pulse Ox O2 Delivery O2 Flow Rate FiO2 11/06/17 20:00 98.4 90 20 142/77 99 Room Air 11/06/17 17:29 153/99 11/06/17 16:00 98.8 94 20 153/99 93 Nasal Cannula 2.0 11/06/17 12:00 98.4 88 18 153/89 94 Nasal Cannula 2.0 11/06/17 09:54 161/86 11/06/17 07:48 98.6 95 18 161/86 95 Nasal Cannula 2.0 11/06/17 04:00 99.3 90 20 154/93 93 Nasal Cannula 2.0 11/06/17 00:00 98.4 95 20 158/86 92 Room Air Intake and Output 11/05/17 11/06/17 19:00 07:00 Intake Total 1215.000 ml 770 ml Output Total 500 ml 600 ml Balance 715.000 ml 170 ml Intake Oral 240 ml 240 ml IV Total 975.000 ml 530 ml Output Urine Total 500 ml 600 ml # Bowel Movements 1 Laboratory Tests Test 11/06/17 05:25 11/06/17 06:00 White Blood Count 14.9 K/UL (4.8-10.8) H Red Blood Count 4.38 M/UL (4.20-5.40) Hemoglobin 13.0 G/DL (12.0-16.0) Hematocrit 39.5 % (37.0-47.0) Mean Corpuscular Volume 90 FL (80-99) Mean Corpuscular Hemoglobin 29.6 PG (27.0-31.0) Mean Corpuscular Hemoglobin Concent 32.9 G/DL (32.0-36.0) Red Cell Distribution Width 12.0 % (11.6-14.8) Platelet Count 287 K/UL (150-450) Mean Platelet Volume 5.5 FL (6.5-10.1) L Neutrophils (%) (Auto) 84.3 % (45.0-75.0) H Lymphocytes (%) (Auto) 6.7 % (20.0-45.0) L Monocytes (%) (Auto) 8.5 % (1.0-10.0) Eosinophils (%) (Auto) 0.1 % (0.0-3.0) Basophils (%) (Auto) 0.4 % (0.0-2.0) Sodium Level 136 MMOL/L (136-145) Potassium Level 3.7 MMOL/L (3.5-5.1) Chloride Level 101 MMOL/L (98-107) Carbon Dioxide Level 24 MMOL/L (21-32) Anion Gap 11 mmol/L (5-15) Blood Urea Nitrogen 12 mg/dL (7-18) Creatinine 0.7 MG/DL (0.55-1.30) Estimat Glomerular Filtration Rate mL/min (>60) Glucose Level 111 MG/DL (74-106) H Calcium Level 9.3 MG/DL (8.5-10.1) Total Bilirubin 1.0 MG/DL (0.2-1.0) Aspartate Amino Transf (AST/SGOT) 27 U/L (15-37) Alanine Aminotransferase (ALT/SGPT) 19 U/L (12-78) Alkaline Phosphatase 70 U/L (46-116) Pro-B-Type Natriuretic Peptide 4886 pg/mL (0-125) H Total Protein 7.2 G/DL (6.4-8.2) Albumin 3.2 G/DL (3.4-5.0) L Globulin 4.0 g/dL Albumin/Globulin Ratio 0.8 (1.0-2.7) L C-Reactive Protein, Quantitative 22.9 mg/dL (0.00-0.90) H Height (Feet): 5 Height (Inches): 6.00 Weight (Pounds): 138 Medications Current Medications Medications (Trade) Dose Ordered Sig/Uday Route PRN Reason Start Time Stop Time Status Last Admin Dose Admin Acetaminophen (Tylenol) 500 mg Q6H PRN ORAL Prn Headache/Temp > 101 11/04/17 23:15 12/04/17 23:14 11/05/17 18:29 Albuterol/ Ipratropium (Albuterol/ Ipratropium) 3 ml Q6HR PRN HHN Shortness of Breath 11/06/17 13:15 11/11/17 13:14 Aspirin (Ecotrin) 81 mg DAILY ORAL 11/05/17 09:00 12/05/17 08:59 11/06/17 09:53 Benazepril HCl (Lotensin) 10 mg BID ORAL 11/06/17 18:00 12/05/17 08:59 11/06/17 17:29 Cefepime HCl 2 gm/ Dextrose 55 ml @ 110 mls/hr Q24H IVPB 11/05/17 21:00 11/12/17 20:59 11/06/17 20:05 Dextrose/Sodium Chloride 1,000 ml @ 50 mls/hr Q20H IV 11/05/17 00:00 12/05/17 00:00 11/05/17 23:00 Heparin Sodium (Porcine) (Heparin 5000 units/ml) 5,000 units EVERY 12 HOURS SUBQ 11/05/17 09:00 12/05/17 08:59 11/06/17 20:07 Hydralazine HCl (Apresoline) 25 mg Q4HR PRN ORAL bp over 160 syst 11/04/17 21:45 12/04/17 21:44 Latanoprost (Xalatan) 1 drop BEDTIME BOTH EYES 11/05/17 21:00 12/05/17 20:59 11/06/17 20:06 Levothyroxine Sodium (Synthroid) 50 mcg ACBREAKFAST ORAL 11/05/17 06:30 12/05/17 06:29 11/06/17 06:27 Ondansetron HCl (Zofran) 4 mg Q6H PRN IVP Nausea & Vomiting 11/04/17 21:45 12/04/17 21:44 Pantoprazole (Protonix) 40 mg DAILY ORAL 11/05/17 09:00 12/05/17 08:59 11/06/17 09:54 Sertraline HCl (Zoloft) 50 mg DAILY ORAL 11/05/17 10:00 12/05/17 09:59 11/06/17 09:54 Vancomycin HCl (Vanco rx to dose) 1 ea DAILY PRN MISC Per rx protocol 11/05/17 11:00 12/05/17 10:59 Vancomycin HCl 1 gm/Dextrose 275 ml @ 183.708 mls/hr Q24H IVPB 11/05/17 12:00 11/10/17 11:59 11/06/17 11:35 Assessment/Plan Status: unchanged Assessment/Plan delirium/ence mdd decrease Zoloft start zyprexa 2.5 Garrison Viramontes M.D. Nov 06, 2017 22:53
[2017-11-07] VITALS (9 sets, daily range): BP systolic 105–153; BP diastolic 57–106
[2017-11-07] MEDS: D5NS 1,000 ML IV SCH (05:02)
[2017-11-07 07:23] LABS: BASOPHILS % (AUTO) 0.4 % (0.0-2.0); EOSINOPHILS % (AUTO) 0.1 % (0.0-3.0); LYMPHOCYTES % (AUTO) 7.7 % (20.0-45.0); MEAN CORPUSCULAR VOLUME 90 FL (80-99); MONOCYTES % (AUTO) 11.7 % (1.0-10.0); NEUTROPHILS % (AUTO) 80.2 % (45.0-75.0); PLATELET COUNT 257 K/UL (150-450); RED CELL DISTRIBUTION WIDTH 11.8 % (11.6-14.8); WHITE BLOOD COUNT 13.3 K/UL (4.8-10.8)
[2017-11-07 08:12] LABS: ALANINE AMINOTRANSFERASE 19 U/L (12-78); ALBUMIN 2.6 G/DL (3.4-5.0); ALBUMIN/GLOBULIN RATIO 0.7 (1.0-2.7); ALKALINE PHOSPHATASE 73 U/L (46-116); ANION GAP 10 mmol/L (5-15); ASPARTATE AMINO TRANSFERASE 20 U/L (15-37); BLOOD UREA NITROGEN 9 mg/dL (7-18); CALCIUM 8.9 MG/DL (8.5-10.1); CARBON DIOXIDE 25 MMOL/L (21-32); CHLORIDE 102 MMOL/L (98-107); CREATININE 0.7 MG/DL (0.55-1.30); PHOSPHORUS 2.8 MG/DL (2.5-4.9); POTASSIUM 3.5 MMOL/L (3.5-5.1); SODIUM 137 MMOL/L (136-145)
[2017-11-07 08:43] LABS: BILIRUBIN,TOTAL 0.8 MG/DL (0.2-1.0)
[2017-11-07] MEDS: Benazepril 10mg tab ORAL SCH ×2 (09:01→18:00)
[2017-11-07] MEDS: Sertraline 50mg tab ORAL SCH (09:01)
[2017-11-07] MEDS: Aspirin EC 81mg tab ORAL SCH (09:01)
[2017-11-07] MEDS: Heparin 5000 units/ml inj SUBQ SCH ×2 (09:05→20:06)
[2017-11-07] MEDS: Vancomycin 1gm/D5W 275ml IVPB SCH ×2 (12:54)
--- NOTE | 2017-11-07 14:31 | Infectious Diseases Prog Note ---
Assessment/Plan Problems: (1) HCAP (healthcare-associated pneumonia) Assessment & Plan: continue vancomycin and cefepime empiric coverage pending sputum culture, repeat CXR , start neb therapy , will treat for 7 days (2) UTI (urinary tract infection) Assessment & Plan: continue cefepime pending culture results (3) Sepsis Assessment & Plan: due to the above, on wide spectrum antibiotics pending blood culture (4) Fever Assessment & Plan: improved , continue antibiotics and tylenol (5) Hypotension Assessment & Plan: resolved , rule out sepsis , continue antibiotics pending culture (6) MRSA colonization Assessment & Plan: keep in contact isolation for now Subjective Constitutional: Reports: no symptoms HEENT: Reports: congestion Respiratory: Reports: dry cough Breasts: Reports: no symptoms Cardiovascular: Reports: no symptoms Gastrointestinal/Abdominal: Reports: no symptoms Genitourinary: Reports: no symptoms Neurologic: Reports: no symptoms Psychiatric: Reports: no symptoms Skin: Reports: no symptoms Endocrine: Reports: no symptoms Hematologic: Reports: no symptoms Musculoskeletal: Reports: no symptoms Allergies: Coded Allergies: DULOXETINE (Verified Allergy, Unknown, 09/15/16) Subjective she was up in bed, awake and alert, follows some commands, had mild SOB, no cough , no fever or chills today , no diarrhea . Objective Vital Signs Last 24 Hour Vital Signs Date Time Temp Pulse Resp B/P (MAP) Pulse Ox O2 Delivery O2 Flow Rate FiO2 11/07/17 11:48 98.1 83 22 128/75 92 11/07/17 09:50 Nasal Cannula 2.0 28 11/07/17 09:50 95 Nasal Cannula 2.0 28 11/07/17 09:01 124/71 11/07/17 08:00 98.4 89 20 124/71 94 11/07/17 04:00 98.2 71 18 145/77 96 Nasal Cannula 11/07/17 00:00 Nasal Cannula 3.0 11/07/17 00:00 98.0 90 20 137/71 97 Nasal Cannula 11/06/17 20:00 98.4 90 20 142/77 99 Room Air 11/06/17 20:00 99 Nasal Cannula 3.0 11/06/17 17:29 153/99 11/06/17 16:00 98.8 94 20 153/99 93 Nasal Cannula 2.0 Height (Feet): 5 Height (Inches): 6.00 Weight (Pounds): 138 General Appearance: WD/WN, no acute distress HEENT: normocephalic, atraumatic, anicteric, mucous membranes moist, PERRL Respiratory/Chest: chest wall non-tender, lungs clear, normal breath sounds, no respiratory distress, no accessory muscle use Cardiovascular: normal peripheral pulses, normal rate, regular rhythm, no gallop/murmur, no JVD Abdomen: normal bowel sounds, soft, non tender, no organomegaly, non distended , no mass, no scars Extremities: no cyanosis, no clubbing Skin: no rash, no lesions, no ulcers Neurologic/Psychiatric: alert, responsive Lymphatic: no neck adenopathy, no groin adenopathy Microbiology Date/Time Source Procedure Growth Status 11/05/17 20:43 Blood Blood Culture - Preliminary NO GROWTH AFTER 24 HOURS Resulted 11/05/17 20:33 Blood Blood Culture - Preliminary NO GROWTH AFTER 24 HOURS Resulted 11/05/17 10:25 Blood Blood Culture - Preliminary NO GROWTH AFTER 24 HOURS Resulted 11/05/17 10:10 Blood Blood Culture - Preliminary NO GROWTH AFTER 24 HOURS Resulted 11/04/17 22:00 Nasal Nares MRSA Culture - Final Staphylococcus Aureus - Mrsa Complete 11/04/17 23:45 Indwelling Cath Urine Culture - Final NO GROWTH AFTER 48 HOURS Complete 11/04/17 22:00 Rectum VRE Culture - Final NO VANCOMYCIN RESISTANT ENTEROCOCCUS ... Complete Laboratory Tests Test 11/07/17 04:40 11/07/17 10:45 White Blood Count 13.3 K/UL (4.8-10.8) H Red Blood Count 4.00 M/UL (4.20-5.40) L Hemoglobin 12.0 G/DL (12.0-16.0) Hematocrit 36.0 % (37.0-47.0) L Mean Corpuscular Volume 90 FL (80-99) Mean Corpuscular Hemoglobin 30.0 PG (27.0-31.0) Mean Corpuscular Hemoglobin Concent 33.4 G/DL (32.0-36.0) Red Cell Distribution Width 11.8 % (11.6-14.8) Platelet Count 257 K/UL (150-450) Mean Platelet Volume 5.6 FL (6.5-10.1) L Neutrophils (%) (Auto) 80.2 % (45.0-75.0) H Lymphocytes (%) (Auto) 7.7 % (20.0-45.0) L Monocytes (%) (Auto) 11.7 % (1.0-10.0) H Eosinophils (%) (Auto) 0.1 % (0.0-3.0) Basophils (%) (Auto) 0.4 % (0.0-2.0) Sodium Level 137 MMOL/L (136-145) Potassium Level 3.5 MMOL/L (3.5-5.1) Chloride Level 102 MMOL/L (98-107) Carbon Dioxide Level 25 MMOL/L (21-32) Anion Gap 10 mmol/L (5-15) Blood Urea Nitrogen 9 mg/dL (7-18) Creatinine 0.7 MG/DL (0.55-1.30) Estimat Glomerular Filtration Rate mL/min (>60) Glucose Level 116 MG/DL (74-106) H Calcium Level 8.9 MG/DL (8.5-10.1) Phosphorus Level 2.8 MG/DL (2.5-4.9) Magnesium Level 1.9 MG/DL (1.8-2.4) Total Bilirubin 0.8 MG/DL (0.2-1.0) Aspartate Amino Transf (AST/SGOT) 20 U/L (15-37) Alanine Aminotransferase (ALT/SGPT) 19 U/L (12-78) Alkaline Phosphatase 73 U/L (46-116) Pro-B-Type Natriuretic Peptide 9090 pg/mL (0-125) H Total Protein 6.4 G/DL (6.4-8.2) Albumin 2.6 G/DL (3.4-5.0) L Globulin 3.8 g/dL Albumin/Globulin Ratio 0.7 (1.0-2.7) L Vancomycin Level Trough 6.0 ug/mL (5.0-12.0) Current Medications Medications (Trade) Dose Ordered Sig/Uday Route PRN Reason Start Time Stop Time Status Last Admin Dose Admin Acetaminophen (Tylenol) 500 mg Q6H PRN ORAL Prn Headache/Temp > 101 11/04/17 23:15 12/04/17 23:14 11/05/17 18:29 Albuterol/ Ipratropium (Albuterol/ Ipratropium) 3 ml Q6HR PRN HHN Shortness of Breath 11/06/17 13:15 11/11/17 13:14 Aspirin (Ecotrin) 81 mg DAILY ORAL 11/05/17 09:00 12/05/17 08:59 11/07/17 09:01 Benazepril HCl (Lotensin) 10 mg BID ORAL 11/06/17 18:00 12/05/17 08:59 11/07/17 09:01 Cefepime HCl 2 gm/ Dextrose 55 ml @ 110 mls/hr Q24H IVPB 11/05/17 21:00 11/12/17 20:59 11/06/17 20:05 Dextrose/Sodium Chloride 1,000 ml @ 50 mls/hr Q20H IV 11/05/17 00:00 12/05/17 00:00 11/07/17 05:02 Heparin Sodium (Porcine) (Heparin 5000 units/ml) 5,000 units EVERY 12 HOURS SUBQ 11/05/17 09:00 12/05/17 08:59 11/07/17 09:05 Hydralazine HCl (Apresoline) 25 mg Q4HR PRN ORAL bp over 160 syst 11/04/17 21:45 12/04/17 21:44 Latanoprost (Xalatan) 1 drop BEDTIME BOTH EYES 11/05/17 21:00 12/05/17 20:59 11/06/17 20:06 Levothyroxine Sodium (Synthroid) 50 mcg ACBREAKFAST ORAL 11/05/17 06:30 12/05/17 06:29 11/07/17 05:46 Olanzapine (ZyPREXA) 2.5 mg BEDTIME ORAL 11/07/17 21:00 12/07/17 20:59 Ondansetron HCl (Zofran) 4 mg Q6H PRN IVP Nausea & Vomiting 11/04/17 21:45 12/04/17 21:44 Pantoprazole (Protonix) 40 mg DAILY ORAL 11/05/17 09:00 12/05/17 08:59 11/07/17 09:01 Sertraline HCl (Zoloft) 50 mg DAILY ORAL 11/05/17 10:00 12/05/17 09:59 11/07/17 09:01 Vancomycin HCl (Vanco rx to dose) 1 ea DAILY PRN MISC Per rx protocol 11/05/17 11:00 12/05/17 10:59 Vancomycin HCl 1 gm/Dextrose 275 ml @ 183.708 mls/hr Q24H IVPB 11/05/17 12:00 11/07/17 15:00 11/07/17 12:54 Vancomycin/Sodium Chloride 250 ml @ 166.667 mls/hr Q12HR@0100,1300 IVPB 11/08/17 01:00 11/13/17 00:59 Steve De Leon M.D. Nov 07, 2017 14:31
--- NOTE | 2017-11-07 15:01 | General Progress Note ---
Assessment/Plan Problem List: (1) Pneumonia ICD Codes: J18.9 - Pneumonia, unspecified organism SNOMED: 622252529 Qualifiers: (2) Hypotension ICD Codes: I95.9 - Hypotension, unspecified SNOMED: 33255707 (3) UTI (urinary tract infection) ICD Codes: N39.0 - Urinary tract infection, site not specified SNOMED: 91700158 (4) At high risk for aspiration ICD Codes: Z91.89 - Other specified personal risk factors, not elsewhere classified SNOMED: 900022961 (5) Dementia ICD Codes: F03.90 - Unspecified dementia without behavioral disturbance SNOMED: 67207746 Status: stable Assessment/Plan AntiBiotics St eval. pulmonary toilet monitor labs DC in 1-2 days Subjective ROS Limited/Unobtainable: No Constitutional: Reports: malaise, other - stronger Allergies: Coded Allergies: DULOXETINE (Verified Allergy, Unknown, 09/15/16) Objective Last 24 Hour Vital Signs Date Time Temp Pulse Resp B/P (MAP) Pulse Ox O2 Delivery O2 Flow Rate FiO2 11/07/17 11:48 98.1 83 22 128/75 92 11/07/17 09:50 Nasal Cannula 2.0 28 11/07/17 09:50 95 Nasal Cannula 2.0 28 11/07/17 09:01 124/71 11/07/17 08:00 98.4 89 20 124/71 94 11/07/17 04:00 98.2 71 18 145/77 96 Nasal Cannula 11/07/17 00:00 Nasal Cannula 3.0 11/07/17 00:00 98.0 90 20 137/71 97 Nasal Cannula 11/06/17 20:00 98.4 90 20 142/77 99 Room Air 11/06/17 20:00 99 Nasal Cannula 3.0 11/06/17 17:29 153/99 11/06/17 16:00 98.8 94 20 153/99 93 Nasal Cannula 2.0 Intake and Output 11/06/17 11/07/17 19:00 07:00 Intake Total 777.416 ml 580 ml Output Total 375 ml 300 ml Balance 402.416 ml 280 ml Intake Oral 360 ml IV Total 417.416 ml 580 ml Output Urine Total 375 ml 300 ml # Bowel Movements 4 Laboratory Tests 11/07/17 04:40: White Blood Count 13.3H, Red Blood Count 4.00L, Hemoglobin 12.0, Hematocrit 36.0L, Mean Corpuscular Volume 90, Mean Corpuscular Hemoglobin 30.0, Mean Corpuscular Hemoglobin Concent 33.4, Red Cell Distribution Width 11.8, Platelet Count 257, Mean Platelet Volume 5.6L, Neutrophils (%) (Auto) 80.2H, Lymphocytes (%) (Auto) 7.7L, Monocytes (%) (Auto) 11.7H, Eosinophils (%) (Auto) 0.1, Basophils (%) (Auto) 0.4, Sodium Level 137, Potassium Level 3.5, Chloride Level 102, Carbon Dioxide Level 25, Anion Gap 10, Blood Urea Nitrogen 9, Creatinine 0.7, Estimat Glomerular Filtration Rate , Glucose Level 116H, Calcium Level 8.9 , Phosphorus Level 2.8, Magnesium Level 1.9, Total Bilirubin 0.8, Aspartate Amino Transf (AST/SGOT) 20, Alanine Aminotransferase (ALT/SGPT) 19, Alkaline Phosphatase 73, Pro-B-Type Natriuretic Peptide 9090H, Total Protein 6.4, Albumin 2.6L, Globulin 3.8, Albumin/Globulin Ratio 0.7L 11/07/17 10:45: Vancomycin Level Trough 6.0 Height (Feet): 5 Height (Inches): 6.00 Weight (Pounds): 138 General Appearance: no apparent distress Neck: limited range of motion Cardiovascular: normal rate Respiratory/Chest: decreased breath sounds Abdomen: soft Objective no other changes ROD VINCENT Nov 07, 2017 15:01
--- NOTE | 2017-11-07 17:58 | Pulmonology Progress Note ---
Assessment/Plan Problems: (1) Pneumonia (2) At high risk for aspiration (3) Hypotension (4) Dementia Assessment/Plan MRSA isoation cultures pending chest pt eating well, titrate fio2 to sat of 92 chest pt continue IV abx. Subjective ROS Limited/Unobtainable: No Constitutional: Reports: no symptoms HEENT: Repors: no symptoms Respiratory: Reports: no symptoms Allergies: Coded Allergies: DULOXETINE (Verified Allergy, Unknown, 09/15/16) Objective Last 24 Hour Vital Signs Date Time Temp Pulse Resp B/P (MAP) Pulse Ox O2 Delivery O2 Flow Rate FiO2 11/07/17 16:00 97.0 99 18 126/67 96 Room Air 11/07/17 11:48 98.1 83 22 128/75 92 11/07/17 09:50 Nasal Cannula 2.0 28 11/07/17 09:50 95 Nasal Cannula 2.0 28 11/07/17 09:01 124/71 11/07/17 08:00 98.4 89 20 124/71 94 11/07/17 04:00 98.2 71 18 145/77 96 Nasal Cannula 11/07/17 00:00 Nasal Cannula 3.0 11/07/17 00:00 98.0 90 20 137/71 97 Nasal Cannula 11/06/17 20:00 98.4 90 20 142/77 99 Room Air 11/06/17 20:00 99 Nasal Cannula 3.0 Intake and Output 11/06/17 11/07/17 19:00 07:00 Intake Total 777.416 ml 580 ml Output Total 375 ml 300 ml Balance 402.416 ml 280 ml Intake Oral 360 ml IV Total 417.416 ml 580 ml Output Urine Total 375 ml 300 ml # Bowel Movements 4 General Appearance: cachetic HEENT: normocephalic, atraumatic Respiratory/Chest: chest wall non-tender, lungs clear Cardiovascular: normal peripheral pulses, normal rate Abdomen: normal bowel sounds, no organomegaly Extremities: no cyanosis Skin: no rash Neurologic/Psychiatric: marketing communication manager II-XII grossly normal, alert Lymphatic: no neck adenopathy Microbiology Date/Time Source Procedure Growth Status 11/05/17 20:43 Blood Blood Culture - Preliminary NO GROWTH AFTER 24 HOURS Resulted 11/05/17 20:33 Blood Blood Culture - Preliminary NO GROWTH AFTER 24 HOURS Resulted 11/05/17 10:25 Blood Blood Culture - Preliminary NO GROWTH AFTER 24 HOURS Resulted 11/05/17 10:10 Blood Blood Culture - Preliminary NO GROWTH AFTER 24 HOURS Resulted 11/04/17 22:00 Nasal Nares MRSA Culture - Final Staphylococcus Aureus - Mrsa Complete 11/04/17 23:45 Indwelling Cath Urine Culture - Final NO GROWTH AFTER 48 HOURS Complete 11/04/17 22:00 Rectum VRE Culture - Final NO VANCOMYCIN RESISTANT ENTEROCOCCUS ... Complete Laboratory Tests 11/07/17 04:40: White Blood Count 13.3H, Red Blood Count 4.00L, Hemoglobin 12.0, Hematocrit 36.0L, Mean Corpuscular Volume 90, Mean Corpuscular Hemoglobin 30.0, Mean Corpuscular Hemoglobin Concent 33.4, Red Cell Distribution Width 11.8, Platelet Count 257, Mean Platelet Volume 5.6L, Neutrophils (%) (Auto) 80.2H, Lymphocytes (%) (Auto) 7.7L, Monocytes (%) (Auto) 11.7H, Eosinophils (%) (Auto) 0.1, Basophils (%) (Auto) 0.4, Sodium Level 137, Potassium Level 3.5, Chloride Level 102, Carbon Dioxide Level 25, Anion Gap 10, Blood Urea Nitrogen 9, Creatinine 0.7, Estimat Glomerular Filtration Rate , Glucose Level 116H, Calcium Level 8.9 , Phosphorus Level 2.8, Magnesium Level 1.9, Total Bilirubin 0.8, Aspartate Amino Transf (AST/SGOT) 20, Alanine Aminotransferase (ALT/SGPT) 19, Alkaline Phosphatase 73, C-Reactive Protein, Quantitative 30.8H, Pro-B-Type Natriuretic Peptide 9090H, Total Protein 6.4, Albumin 2.6L, Globulin 3.8, Albumin/Globulin Ratio 0.7L 11/07/17 10:45: Vancomycin Level Trough 6.0 Current Medications Medications (Trade) Dose Ordered Sig/Uday Route PRN Reason Start Time Stop Time Status Last Admin Dose Admin Acetaminophen (Tylenol) 500 mg Q6H PRN ORAL Prn Headache/Temp > 101 11/04/17 23:15 12/04/17 23:14 11/05/17 18:29 Albuterol/ Ipratropium (Albuterol/ Ipratropium) 3 ml Q6HR PRN HHN Shortness of Breath 11/06/17 13:15 11/11/17 13:14 Aspirin (Ecotrin) 81 mg DAILY ORAL 11/05/17 09:00 12/05/17 08:59 11/07/17 09:01 Benazepril HCl (Lotensin) 10 mg BID ORAL 11/06/17 18:00 12/05/17 08:59 11/07/17 09:01 Cefepime HCl 2 gm/ Dextrose 55 ml @ 110 mls/hr Q24H IVPB 11/05/17 21:00 11/12/17 20:59 11/06/17 20:05 Heparin Sodium (Porcine) (Heparin 5000 units/ml) 5,000 units EVERY 12 HOURS SUBQ 11/05/17 09:00 12/05/17 08:59 11/07/17 09:05 Hydralazine HCl (Apresoline) 25 mg Q4HR PRN ORAL bp over 160 syst 11/04/17 21:45 12/04/17 21:44 Latanoprost (Xalatan) 1 drop BEDTIME BOTH EYES 11/05/17 21:00 12/05/17 20:59 11/06/17 20:06 Levothyroxine Sodium (Synthroid) 50 mcg ACBREAKFAST ORAL 11/05/17 06:30 12/05/17 06:29 11/07/17 05:46 Olanzapine (ZyPREXA) 2.5 mg BEDTIME ORAL 11/07/17 21:00 12/07/17 20:59 Ondansetron HCl (Zofran) 4 mg Q6H PRN IVP Nausea & Vomiting 11/04/17 21:45 12/04/17 21:44 Pantoprazole (Protonix) 40 mg DAILY ORAL 11/05/17 09:00 12/05/17 08:59 11/07/17 09:01 Sertraline HCl (Zoloft) 50 mg DAILY ORAL 11/05/17 10:00 12/05/17 09:59 11/07/17 09:01 Vancomycin HCl (Vanco rx to dose) 1 ea DAILY PRN MISC Per rx protocol 11/05/17 11:00 12/05/17 10:59 Vancomycin/Sodium Chloride 250 ml @ 166.667 mls/hr Q12HR@0100,1300 IVPB 11/08/17 01:00 11/13/17 00:59 ANNETTE ANDERSON Nov 07, 2017 17:58
[2017-11-07] MEDS: Cefepime HCl 2 GM in D5W 55 ML IVPB SCH (20:04)
[2017-11-07] MEDS: Latanoprost 0.005% Opth 2.5ml Soln BOTH EYES SCH (20:04)
[2017-11-07] MEDS: Acetaminophen 500mg (ES) tab ORAL PRN (20:05)
[2017-11-07] MEDS ORDERED: OLANZapine 2.5mg tab ORAL SCH (21:00)
[2017-11-07] MEDS: Albuterol/Ipratropium 3ml neb HHN PRN (21:39)
--- NOTE | 2017-11-07 22:16 | Geriatric Progress Note ---
Assessment/Plan Discussed with: patient Subjective Interval Events 11/06/17 Mood/Memory: Reports: prior hx, anxiety Geriatric Geriatric Last 24 Hour Vital Signs Date Time Temp Pulse Resp B/P (MAP) Pulse Ox O2 Delivery O2 Flow Rate FiO2 11/07/17 21:49 88 18 99 Nasal Cannula 2.0 11/07/17 21:41 Nasal Cannula 2.0 28 11/07/17 21:41 93 Nasal Cannula 2.0 28 11/07/17 21:40 85 18 93 Nasal Cannula 2.0 28 11/07/17 21:10 99.0 97 22 147/79 93 Nasal Cannula 2.0 11/07/17 21:04 99.0 11/07/17 19:29 100.4 105 18 145/100 90 Room Air 11/07/17 18:00 126/67 11/07/17 16:00 97.0 99 18 126/67 96 Room Air 11/07/17 11:48 98.1 83 22 128/75 92 11/07/17 09:50 Nasal Cannula 2.0 28 11/07/17 09:50 95 Nasal Cannula 2.0 28 11/07/17 09:01 124/71 11/07/17 08:00 98.4 89 20 124/71 94 11/07/17 04:00 98.2 71 18 145/77 96 Nasal Cannula 11/07/17 00:00 Nasal Cannula 3.0 11/07/17 00:00 98.0 90 20 137/71 97 Nasal Cannula Intake and Output 11/06/17 11/07/17 19:00 07:00 Intake Total 777.416 ml 580 ml Output Total 375 ml 300 ml Balance 402.416 ml 280 ml Intake Oral 360 ml IV Total 417.416 ml 580 ml Output Urine Total 375 ml 300 ml # Bowel Movements 4 Laboratory Tests Test 11/07/17 04:40 11/07/17 10:45 White Blood Count 13.3 K/UL (4.8-10.8) H Red Blood Count 4.00 M/UL (4.20-5.40) L Hemoglobin 12.0 G/DL (12.0-16.0) Hematocrit 36.0 % (37.0-47.0) L Mean Corpuscular Volume 90 FL (80-99) Mean Corpuscular Hemoglobin 30.0 PG (27.0-31.0) Mean Corpuscular Hemoglobin Concent 33.4 G/DL (32.0-36.0) Red Cell Distribution Width 11.8 % (11.6-14.8) Platelet Count 257 K/UL (150-450) Mean Platelet Volume 5.6 FL (6.5-10.1) L Neutrophils (%) (Auto) 80.2 % (45.0-75.0) H Lymphocytes (%) (Auto) 7.7 % (20.0-45.0) L Monocytes (%) (Auto) 11.7 % (1.0-10.0) H Eosinophils (%) (Auto) 0.1 % (0.0-3.0) Basophils (%) (Auto) 0.4 % (0.0-2.0) Sodium Level 137 MMOL/L (136-145) Potassium Level 3.5 MMOL/L (3.5-5.1) Chloride Level 102 MMOL/L (98-107) Carbon Dioxide Level 25 MMOL/L (21-32) Anion Gap 10 mmol/L (5-15) Blood Urea Nitrogen 9 mg/dL (7-18) Creatinine 0.7 MG/DL (0.55-1.30) Estimat Glomerular Filtration Rate mL/min (>60) Glucose Level 116 MG/DL (74-106) H Calcium Level 8.9 MG/DL (8.5-10.1) Phosphorus Level 2.8 MG/DL (2.5-4.9) Magnesium Level 1.9 MG/DL (1.8-2.4) Total Bilirubin 0.8 MG/DL (0.2-1.0) Aspartate Amino Transf (AST/SGOT) 20 U/L (15-37) Alanine Aminotransferase (ALT/SGPT) 19 U/L (12-78) Alkaline Phosphatase 73 U/L (46-116) C-Reactive Protein, Quantitative 30.8 mg/dL (0.00-0.90) H Pro-B-Type Natriuretic Peptide 9090 pg/mL (0-125) H Total Protein 6.4 G/DL (6.4-8.2) Albumin 2.6 G/DL (3.4-5.0) L Globulin 3.8 g/dL Albumin/Globulin Ratio 0.7 (1.0-2.7) L Vancomycin Level Trough 6.0 ug/mL (5.0-12.0) Current Medications Medications (Trade) Dose Ordered Sig/Uday Route PRN Reason Start Time Stop Time Status Last Admin Dose Admin Acetaminophen (Tylenol) 500 mg Q6H PRN ORAL Prn Headache/Temp > 101 11/04/17 23:15 12/04/17 23:14 11/07/17 20:05 Albuterol/ Ipratropium (Albuterol/ Ipratropium) 3 ml Q6HR PRN HHN Shortness of Breath 11/06/17 13:15 11/11/17 13:14 11/07/17 21:39 Aspirin (Ecotrin) 81 mg DAILY ORAL 11/05/17 09:00 12/05/17 08:59 11/07/17 09:01 Benazepril HCl (Lotensin) 10 mg BID ORAL 11/06/17 18:00 12/05/17 08:59 11/07/17 09:01 Cefepime HCl 2 gm/ Dextrose 55 ml @ 110 mls/hr Q24H IVPB 11/05/17 21:00 11/12/17 20:59 11/07/17 20:04 Heparin Sodium (Porcine) (Heparin 5000 units/ml) 5,000 units EVERY 12 HOURS SUBQ 11/05/17 09:00 12/05/17 08:59 11/07/17 20:06 Hydralazine HCl (Apresoline) 25 mg Q4HR PRN ORAL bp over 160 syst 11/04/17 21:45 12/04/17 21:44 Latanoprost (Xalatan) 1 drop BEDTIME BOTH EYES 11/05/17 21:00 12/05/17 20:59 11/07/17 20:04 Levothyroxine Sodium (Synthroid) 50 mcg ACBREAKFAST ORAL 11/05/17 06:30 12/05/17 06:29 11/07/17 05:46 Olanzapine (ZyPREXA) 2.5 mg BEDTIME ORAL 11/07/17 21:00 12/07/17 20:59 11/07/17 20:04 Ondansetron HCl (Zofran) 4 mg Q6H PRN IVP Nausea & Vomiting 11/04/17 21:45 12/04/17 21:44 Pantoprazole (Protonix) 40 mg DAILY ORAL 11/05/17 09:00 12/05/17 08:59 11/07/17 09:01 Sertraline HCl (Zoloft) 50 mg DAILY ORAL 11/05/17 10:00 12/05/17 09:59 11/07/17 09:01 Vancomycin HCl (Vanco rx to dose) 1 ea DAILY PRN MISC Per rx protocol 11/05/17 11:00 12/05/17 10:59 Vancomycin/Sodium Chloride 250 ml @ 166.667 mls/hr Q12HR@0100,1300 IVPB 11/08/17 01:00 11/13/17 00:59 Height (Feet): 5 Height (Inches): 6.00 Weight (Pounds): 138 General Appearance: alert, good eye contact Neurologic: alert Psychiatric Orientation: person, disoriented Affect: flat Insight: poor Garrison Viramontes M.D. Nov 07, 2017 22:16
[2017-11-08] VITALS (8 sets, daily range): BP systolic 91–148; BP diastolic 57–94
[2017-11-08] MEDS ORDERED: Vancomycin 750mg/NS 250ml IVPB SCH (01:00)
[2017-11-08] MEDS: Albuterol/Ipratropium 3ml neb HHN PRN (05:57)
[2017-11-08 07:28] LABS: BASOPHILS % (AUTO) 0.3 % (0.0-2.0); EOSINOPHILS % (AUTO) 0.3 % (0.0-3.0); HEMOGLOBIN 11.5 G/DL (12.0-16.0); LYMPHOCYTES % (AUTO) 5.3 % (20.0-45.0); MEAN CORPUSCULAR VOLUME 90 FL (80-99); MONOCYTES % (AUTO) 10.9 % (1.0-10.0); NEUTROPHILS % (AUTO) 83.2 % (45.0-75.0); PLATELET COUNT 294 K/UL (150-450); RED BLOOD COUNT 3.89 M/UL (4.20-5.40); RED CELL DISTRIBUTION WIDTH 12.1 % (11.6-14.8); WHITE BLOOD COUNT 13.5 K/UL (4.8-10.8)
[2017-11-08 07:40] LABS: ALANINE AMINOTRANSFERASE 21 U/L (12-78); ALBUMIN 2.5 G/DL (3.4-5.0); ALBUMIN/GLOBULIN RATIO 0.6 (1.0-2.7); ALKALINE PHOSPHATASE 84 U/L (46-116); ANION GAP 7 mmol/L (5-15); ASPARTATE AMINO TRANSFERASE 17 U/L (15-37); BILIRUBIN,TOTAL 0.8 MG/DL (0.2-1.0); BLOOD UREA NITROGEN 10 mg/dL (7-18); CALCIUM 8.9 MG/DL (8.5-10.1); CARBON DIOXIDE 27 MMOL/L (21-32); CHLORIDE 104 MMOL/L (98-107); CREATININE 0.7 MG/DL (0.55-1.30); PHOSPHORUS 2.2 MG/DL (2.5-4.9); POTASSIUM 3.3 MMOL/L (3.5-5.1); SODIUM 138 MMOL/L (136-145)
[2017-11-08] MEDS: Aspirin EC 81mg tab ORAL SCH (09:00)
[2017-11-08] MEDS: Benazepril 10mg tab ORAL SCH (09:00)
[2017-11-08] MEDS: Sertraline 50mg tab ORAL SCH (09:00)
[2017-11-08] MEDS: Heparin 5000 units/ml inj SUBQ SCH (09:00)
[2017-11-08] MEDS ORDERED: HydrALAZINE 25mg tab ORAL PRN (09:30)
[2017-11-08] MEDS ORDERED: Heparin 5000 units/ml inj SUBQ SCH ×2 (09:30→21:00)
[2017-11-08] MEDS ORDERED: Benazepril 10mg tab ORAL SCH (09:30)
[2017-11-08] MEDS ORDERED: Sertraline 50mg tab ORAL SCH (09:30)
[2017-11-08] MEDS ORDERED: Aspirin EC 81mg tab ORAL SCH (09:30)
[2017-11-08] MEDS ORDERED: Acetaminophen 500mg (ES) tab ORAL PRN ×2 (09:30→14:00)
--- NOTE | 2017-11-08 10:23 | Pulmonolgy Critical Care Note ---
Critical Care - Asmt/Plan Problems: (1) Acute respiratory failure (2) HCAP (healthcare-associated pneumonia) (3) Hypotension (4) Sepsis (5) At high risk for aspiration (6) Dementia Respiratory: monitor respiratory rate, adjust FIO2, CXR Cardiac: continue to monitor HR/BP Renal: F/U I&O, keep IV fluid Infectious Disease: check cultures Gastrointestinal: continue feedings/current rate Endocrine: monitor blood sugar, continue sliding scale insulin Hematologic: monitor H/H, transfuse if hgb<8.5 Neurologic: PRN Ativan, PRN Morphine, keep patient comfortable Affect: PRN ativan Prophylaxis: Protonix Time Spent (Minutes): 40 Notes Reviewed: cardio Discussed with: nurses, consultants, supportive employment case managerresearch laboratory manager - Objective Last 24 Hour Vital Signs Date Time Temp Pulse Resp B/P (MAP) Pulse Ox O2 Delivery O2 Flow Rate FiO2 11/08/17 10:00 120 35 122/88 94 Non-Rebreather 15.0 11/08/17 09:59 129/67 11/08/17 08:50 97.9 119 31 129/67 95 Non-Rebreather 15.0 11/08/17 05:57 88 18 95 Nasal Cannula 2.0 28 11/08/17 05:57 82 18 99 Nasal Cannula 2.0 11/08/17 03:48 98.1 90 18 148/81 93 11/08/17 00:00 74 22 114/63 93 Nasal Cannula 2.0 11/07/17 23:33 97.9 71 20 105/57 90 Nasal Cannula 11/07/17 21:49 88 18 99 Nasal Cannula 2.0 11/07/17 21:41 Nasal Cannula 2.0 28 11/07/17 21:41 93 Nasal Cannula 2.0 28 11/07/17 21:40 85 18 93 Nasal Cannula 2.0 28 11/07/17 21:10 99.0 97 22 147/79 93 Nasal Cannula 2.0 11/07/17 21:04 99.0 11/07/17 19:29 100.4 105 18 145/100 90 Room Air 11/07/17 18:00 126/67 11/07/17 16:00 97.0 99 18 126/67 96 Room Air 11/07/17 11:48 98.1 83 22 128/75 92 Status: awake Condition: critical HEENT: atraumatic Lungs: clear Heart: HR/BP stable, HR/BP unstable Abdomen: soft, active bowel sounds Extremities: no C/C/E Decubiti: location Micro: Microbiology Date/Time Source Procedure Growth Status 11/05/17 20:43 Blood Blood Culture - Preliminary NO GROWTH AFTER 48 HOURS Resulted 11/05/17 20:33 Blood Blood Culture - Preliminary NO GROWTH AFTER 48 HOURS Resulted 11/05/17 10:25 Blood Blood Culture - Preliminary NO GROWTH AFTER 48 HOURS Resulted Critical Care - Subjective ROS Limited/Unobtainable: Yes ICU Day: 1 Interval Events: pt was transferred to ICU because of increasing dyspnea and desaturation. Pt is awake with increased respiratory rate. FI02: 28 Sputum Amount: None I&O: Intake and Output 11/07/17 11/08/17 19:00 07:00 Intake Total 590 ml 305.000 ml Output Total 450 ml 375 ml Balance 140 ml -70.000 ml Intake Oral 590 ml IV Total 305.000 ml Output Urine Total 450 ml 375 ml # Bowel Movements 2 1 CXR: increased R lobe infiltrate Labs: Laboratory Tests Test 11/07/17 10:45 11/08/17 05:30 11/08/17 08:40 Vancomycin Level Trough 6.0 ug/mL (5.0-12.0) White Blood Count 13.5 K/UL (4.8-10.8) H Red Blood Count 3.89 M/UL (4.20-5.40) L Hemoglobin 11.5 G/DL (12.0-16.0) L Hematocrit 35.0 % (37.0-47.0) L Mean Corpuscular Volume 90 FL (80-99) Mean Corpuscular Hemoglobin 29.6 PG (27.0-31.0) Mean Corpuscular Hemoglobin Concent 32.9 G/DL (32.0-36.0) Red Cell Distribution Width 12.1 % (11.6-14.8) Platelet Count 294 K/UL (150-450) Mean Platelet Volume 5.9 FL (6.5-10.1) L Neutrophils (%) (Auto) 83.2 % (45.0-75.0) H Lymphocytes (%) (Auto) 5.3 % (20.0-45.0) L Monocytes (%) (Auto) 10.9 % (1.0-10.0) H Eosinophils (%) (Auto) 0.3 % (0.0-3.0) Basophils (%) (Auto) 0.3 % (0.0-2.0) Sodium Level 138 MMOL/L (136-145) Potassium Level 3.3 MMOL/L (3.5-5.1) L Chloride Level 104 MMOL/L (98-107) Carbon Dioxide Level 27 MMOL/L (21-32) Anion Gap 7 mmol/L (5-15) Blood Urea Nitrogen 10 mg/dL (7-18) Creatinine 0.7 MG/DL (0.55-1.30) Estimat Glomerular Filtration Rate mL/min (>60) Glucose Level 92 MG/DL (74-106) Calcium Level 8.9 MG/DL (8.5-10.1) Phosphorus Level 2.2 MG/DL (2.5-4.9) L Magnesium Level 1.8 MG/DL (1.8-2.4) Total Bilirubin 0.8 MG/DL (0.2-1.0) Aspartate Amino Transf (AST/SGOT) 17 U/L (15-37) Alanine Aminotransferase (ALT/SGPT) 21 U/L (12-78) Alkaline Phosphatase 84 U/L (46-116) Pro-B-Type Natriuretic Peptide 7820 pg/mL (0-125) H Total Protein 6.7 G/DL (6.4-8.2) Albumin 2.5 G/DL (3.4-5.0) L Globulin 4.2 g/dL Albumin/Globulin Ratio 0.6 (1.0-2.7) L Arterial Blood pH 7.326 (7.350-7.450) Arterial Blood Partial Pressure CO2 41.3 mmHg (35.0-45.0) Arterial Blood Partial Pressure O2 72.6 mmHg (75.0-100.0) L Arterial Blood HCO3 21.1 mmol/L (22.0-26.0) L Arterial Blood Oxygen Saturation 93.0 % (92.0-98.0) Arterial Blood Base Excess -4.6 Arnel Test Positive ANNETTE ANDERSON Nov 08, 2017 10:23
--- NOTE | 2017-11-08 11:14 | Diagnostic Imaging Report ---
Indication: Cough, dyspnea Technique: One view of the chest Comparison: 11/05/2017 Findings: Extensive dense consolidation is now seen in the right mid and upper lung, left suprahilar region, left lung base. Increased interstitial and patchy airspace opacities are also seen in the right and left midlung. There is increased apparent elevation of the right hemidiaphragm. Postsurgical changes of the left shoulder, extensive degenerative changes of the right shoulder are again demonstrated Impression: Interim marked diffuse worsening of bilateral airspace disease, consistent likely developing/increasing infiltrates versus edema Suspect increasing right pleural fluid
[2017-11-08] MEDS ORDERED: Albuterol/Ipratropium 3ml neb HHN PRN (12:00)
--- NOTE | 2017-11-08 12:17 | General Progress Note ---
Assessment/Plan Problem List: (1) Pneumonia ICD Codes: J18.9 - Pneumonia, unspecified organism SNOMED: 785520884 Qualifiers: (2) Hypotension ICD Codes: I95.9 - Hypotension, unspecified SNOMED: 36030307 (3) UTI (urinary tract infection) ICD Codes: N39.0 - Urinary tract infection, site not specified SNOMED: 98839795 (4) At high risk for aspiration ICD Codes: Z91.89 - Other specified personal risk factors, not elsewhere classified SNOMED: 738681965 (5) Dementia ICD Codes: F03.90 - Unspecified dementia without behavioral disturbance SNOMED: 45422193 Status: deteriorating Status Narrative in icu as she desaturated- BP 90s Assessment/Plan AntiBiotics pulmonary toilet monitor labs hold lotensin K supp. discussed to DPOA regarding the gravity of clinical condition DNR persists CXR worsening pneumonia Subjective ROS Limited/Unobtainable: No Constitutional: Reports: malaise, weakness Allergies: Coded Allergies: DULOXETINE (Verified Allergy, Unknown, 09/15/16) Objective Last 24 Hour Vital Signs Date Time Temp Pulse Resp B/P (MAP) Pulse Ox O2 Delivery O2 Flow Rate FiO2 11/08/17 11:00 108 26 91/57 99 Non-Rebreather 15.0 11/08/17 10:00 120 35 122/88 94 Non-Rebreather 15.0 11/08/17 09:59 129/67 11/08/17 08:50 97.9 119 31 129/67 95 Non-Rebreather 15.0 11/08/17 07:00 148 36 Non-Rebreather 15.0 100 11/08/17 07:00 90 Non-Rebreather 15.0 100 11/08/17 07:00 Non-Rebreather 15.0 100 11/08/17 05:57 88 18 95 Nasal Cannula 2.0 28 11/08/17 05:57 82 18 99 Nasal Cannula 2.0 11/08/17 03:48 98.1 90 18 148/81 93 11/08/17 00:00 74 22 114/63 93 Nasal Cannula 2.0 11/07/17 23:33 97.9 71 20 105/57 90 Nasal Cannula 11/07/17 21:49 88 18 99 Nasal Cannula 2.0 11/07/17 21:41 Nasal Cannula 2.0 28 /30/18 21:41 93 Nasal Cannula 2.0 28 11/07/17 21:40 85 18 93 Nasal Cannula 2.0 28 11/07/17 21:10 99.0 97 22 147/79 93 Nasal Cannula 2.0 11/07/17 21:04 99.0 11/07/17 19:29 100.4 105 18 145/100 90 Room Air 11/07/17 18:00 126/67 11/07/17 16:00 97.0 99 18 126/67 96 Room Air Intake and Output 11/07/17 11/08/17 19:00 07:00 Intake Total 590 ml 305.000 ml Output Total 450 ml 375 ml Balance 140 ml -70.000 ml Intake Oral 590 ml IV Total 305.000 ml Output Urine Total 450 ml 375 ml # Bowel Movements 2 1 Laboratory Tests 11/08/17 05:30: White Blood Count 13.5H, Red Blood Count 3.89L, Hemoglobin 11.5L, Hematocrit 35.0L, Mean Corpuscular Volume 90, Mean Corpuscular Hemoglobin 29.6, Mean Corpuscular Hemoglobin Concent 32.9, Red Cell Distribution Width 12.1, Platelet Count 294, Mean Platelet Volume 5.9L, Neutrophils (%) (Auto) 83.2H, Lymphocytes (%) (Auto) 5.3L, Monocytes (%) (Auto) 10.9H, Eosinophils (%) (Auto) 0.3, Basophils (%) (Auto) 0.3, Sodium Level 138, Potassium Level 3.3L, Chloride Level 104, Carbon Dioxide Level 27, Anion Gap 7, Blood Urea Nitrogen 10, Creatinine 0.7, Estimat Glomerular Filtration Rate , Glucose Level 92, Calcium Level 8.9, Phosphorus Level 2.2L, Magnesium Level 1.8, Total Bilirubin 0.8, Aspartate Amino Transf (AST/SGOT) 17, Alanine Aminotransferase (ALT/SGPT) 21, Alkaline Phosphatase 84, Pro-B-Type Natriuretic Peptide 7820H, Total Protein 6.7 , Albumin 2.5L, Globulin 4.2, Albumin/Globulin Ratio 0.6L 11/08/17 08:40: Arterial Blood pH 7.326L, Arterial Blood Partial Pressure CO2 41.3, Arterial Blood Partial Pressure O2 72.6L, Arterial Blood HCO3 21.1L, Arterial Blood Oxygen Saturation 93.0, Arterial Blood Base Excess -4.6, Arnel Test Positive Height (Feet): 5 Height (Inches): 6.00 Weight (Pounds): 138 General Appearance: lethargic, mild distress Cardiovascular: tachycardia Respiratory/Chest: decreased breath sounds Abdomen: soft Objective no other changes ROD VINCENT Nov 08, 2017 12:17
--- NOTE | 2017-11-08 12:26 | General Progress Note ---
Assessment/Plan Problem List: (1) Pneumonia ICD Codes: J18.9 - Pneumonia, unspecified organism SNOMED: 450567522 Qualifiers: (2) Hypotension ICD Codes: I95.9 - Hypotension, unspecified SNOMED: 12649810 (3) UTI (urinary tract infection) ICD Codes: N39.0 - Urinary tract infection, site not specified SNOMED: 48937010 (4) At high risk for aspiration ICD Codes: Z91.89 - Other specified personal risk factors, not elsewhere classified SNOMED: 448255183 (5) Dementia ICD Codes: F03.90 - Unspecified dementia without behavioral disturbance SNOMED: 74569359 Assessment/Plan discussed with Stephane ANDREWS Agreed with comfort care and out of ICU and MS Subjective Allergies: Coded Allergies: DULOXETINE (Verified Allergy, Unknown, 09/15/16) Objective Last 24 Hour Vital Signs Date Time Temp Pulse Resp B/P (MAP) Pulse Ox O2 Delivery O2 Flow Rate FiO2 11/08/17 11:00 108 26 91/57 99 Non-Rebreather 15.0 11/08/17 10:00 120 35 122/88 94 Non-Rebreather 15.0 11/08/17 09:59 129/67 11/08/17 08:50 97.9 119 31 129/67 95 Non-Rebreather 15.0 11/08/17 07:00 148 36 Non-Rebreather 15.0 100 11/08/17 07:00 90 Non-Rebreather 15.0 100 11/08/17 07:00 Non-Rebreather 15.0 100 11/08/17 05:57 88 18 95 Nasal Cannula 2.0 28 11/08/17 05:57 82 18 99 Nasal Cannula 2.0 11/08/17 03:48 98.1 90 18 148/81 93 11/08/17 00:00 74 22 114/63 93 Nasal Cannula 2.0 11/07/17 23:33 97.9 71 20 105/57 90 Nasal Cannula 11/07/17 21:49 88 18 99 Nasal Cannula 2.0 11/07/17 21:41 Nasal Cannula 2.0 28 11/07/17 21:41 93 Nasal Cannula 2.0 28 11/07/17 21:40 85 18 93 Nasal Cannula 2.0 28 11/07/17 21:10 99.0 97 22 147/79 93 Nasal Cannula 2.0 11/07/17 21:04 99.0 11/07/17 19:29 100.4 105 18 145/100 90 Room Air 11/07/17 18:00 126/67 11/07/17 16:00 97.0 99 18 126/67 96 Room Air Intake and Output 11/07/17 11/08/17 19:00 07:00 Intake Total 590 ml 305.000 ml Output Total 450 ml 375 ml Balance 140 ml -70.000 ml Intake Oral 590 ml IV Total 305.000 ml Output Urine Total 450 ml 375 ml # Bowel Movements 2 1 Laboratory Tests 11/08/17 05:30: White Blood Count 13.5H, Red Blood Count 3.89L, Hemoglobin 11.5L, Hematocrit 35.0L, Mean Corpuscular Volume 90, Mean Corpuscular Hemoglobin 29.6, Mean Corpuscular Hemoglobin Concent 32.9, Red Cell Distribution Width 12.1, Platelet Count 294, Mean Platelet Volume 5.9L, Neutrophils (%) (Auto) 83.2H, Lymphocytes (%) (Auto) 5.3L, Monocytes (%) (Auto) 10.9H, Eosinophils (%) (Auto) 0.3, Basophils (%) (Auto) 0.3, Sodium Level 138, Potassium Level 3.3L, Chloride Level 104, Carbon Dioxide Level 27, Anion Gap 7, Blood Urea Nitrogen 10, Creatinine 0.7, Estimat Glomerular Filtration Rate , Glucose Level 92, Calcium Level 8.9, Phosphorus Level 2.2L, Magnesium Level 1.8, Total Bilirubin 0.8, Aspartate Amino Transf (AST/SGOT) 17, Alanine Aminotransferase (ALT/SGPT) 21, Alkaline Phosphatase 84, C-Reactive Protein, Quantitative [Pending], Pro-B-Type Natriuretic Peptide 7820H, Total Protein 6.7, Albumin 2.5L, Globulin 4.2, Albumin/Globulin Ratio 0.6L 11/08/17 08:40: Arterial Blood pH 7.326L, Arterial Blood Partial Pressure CO2 41.3, Arterial Blood Partial Pressure O2 72.6L, Arterial Blood HCO3 21.1L, Arterial Blood Oxygen Saturation 93.0, Arterial Blood Base Excess -4.6, Arnel Test Positive Height (Feet): 5 Height (Inches): 6.00 Weight (Pounds): 138 Objective no other changes ROD VINCENT Nov 08, 2017 12:26
[2017-11-08] MEDS ORDERED: Morphine Sulfate 2mg/ml Inj IV PRN ×3 (12:45→19:00)
[2017-11-08] MEDS ORDERED: Vancomycin 750mg/NS 250ml 250 ML IVPB SCH ×2 (13:00→14:00)
[2017-11-08] MEDS ORDERED: Levalbuterol Inh UD 1.25mg/0.5ml HHN SCH (13:00)
--- NOTE | 2017-11-08 13:31 | Infectious Diseases Prog Note ---
Assessment/Plan Problems: (1) HCAP (healthcare-associated pneumonia) Assessment & Plan: continue vancomycin and cefepime empiric coverage pending sputum culture, monitor CXR , continue neb therapy . now on comfort care . (2) UTI (urinary tract infection) Assessment & Plan: continue cefepime pending culture results (3) Sepsis Assessment & Plan: ruled out with egative blood culture , already on wide spectrum antibiotics (4) Fever Assessment & Plan: improved , continue antibiotics and tylenol (5) Hypotension Assessment & Plan: resolved , rule out sepsis , continue antibiotics pending culture (6) MRSA colonization Assessment & Plan: keep in contact isolation for now (7) Acute respiratory failure Assessment & Plan: with desaturation, pneumonia related VS fluids over load, monitor CXR, pulmonary is following Subjective ROS Limited/Unobtainable: Yes Allergies: Coded Allergies: DULOXETINE (Verified Allergy, Unknown, 09/15/16) Subjective she was transferred to ICU for tachycardia and desaturation , she is now awake and alert, follows some commands, has mild SOB, no cough , no fever or chills today , no diarrhea . Objective Vital Signs Last 24 Hour Vital Signs Date Time Temp Pulse Resp B/P (MAP) Pulse Ox O2 Delivery O2 Flow Rate FiO2 11/08/17 11:00 108 26 91/57 99 Non-Rebreather 15.0 11/08/17 10:00 120 35 122/88 94 Non-Rebreather 15.0 11/08/17 09:59 129/67 11/08/17 08:50 97.9 119 31 129/67 95 Non-Rebreather 15.0 11/08/17 07:00 148 36 Non-Rebreather 15.0 100 11/08/17 07:00 90 Non-Rebreather 15.0 100 11/08/17 07:00 Non-Rebreather 15.0 100 11/08/17 05:57 88 18 95 Nasal Cannula 2.0 28 11/08/17 05:57 82 18 99 Nasal Cannula 2.0 11/08/17 03:48 98.1 90 18 148/81 93 11/08/17 00:00 74 22 114/63 93 Nasal Cannula 2.0 11/07/17 23:33 97.9 71 20 105/57 90 Nasal Cannula 11/07/17 21:49 88 18 99 Nasal Cannula 2.0 11/07/17 21:41 Nasal Cannula 2.0 28 11/07/17 21:41 93 Nasal Cannula 2.0 28 11/07/17 21:40 85 18 93 Nasal Cannula 2.0 28 11/07/17 21:10 99.0 97 22 147/79 93 Nasal Cannula 2.0 11/07/17 21:04 99.0 11/07/17 19:29 100.4 105 18 145/100 90 Room Air 11/07/17 18:00 126/67 11/07/17 16:00 97.0 99 18 126/67 96 Room Air Height (Feet): 5 Height (Inches): 6.00 Weight (Pounds): 138 General Appearance: WD/WN, no acute distress HEENT: normocephalic, atraumatic, anicteric, mucous membranes moist, PERRL, EOMI, pharynx normal, no JVD Respiratory/Chest: chest wall non-tender, no respiratory distress, no accessory muscle use, decreased breath sounds, crackles/rales Cardiovascular: normal peripheral pulses, normal rate, regular rhythm, no gallop/murmur, no JVD Abdomen: normal bowel sounds, soft, non tender, no organomegaly, non distended , no mass, no scars Extremities: no cyanosis, no clubbing Skin: no rash, no lesions Neurologic/Psychiatric: alert, responsive Microbiology Date/Time Source Procedure Growth Status 11/05/17 20:43 Blood Blood Culture - Preliminary NO GROWTH AFTER 48 HOURS Resulted 11/05/17 20:33 Blood Blood Culture - Preliminary NO GROWTH AFTER 48 HOURS Resulted Laboratory Tests Test 11/08/17 05:30 11/08/17 08:40 White Blood Count 13.5 K/UL (4.8-10.8) H Red Blood Count 3.89 M/UL (4.20-5.40) L Hemoglobin 11.5 G/DL (12.0-16.0) L Hematocrit 35.0 % (37.0-47.0) L Mean Corpuscular Volume 90 FL (80-99) Mean Corpuscular Hemoglobin 29.6 PG (27.0-31.0) Mean Corpuscular Hemoglobin Concent 32.9 G/DL (32.0-36.0) Red Cell Distribution Width 12.1 % (11.6-14.8) Platelet Count 294 K/UL (150-450) Mean Platelet Volume 5.9 FL (6.5-10.1) L Neutrophils (%) (Auto) 83.2 % (45.0-75.0) H Lymphocytes (%) (Auto) 5.3 % (20.0-45.0) L Monocytes (%) (Auto) 10.9 % (1.0-10.0) H Eosinophils (%) (Auto) 0.3 % (0.0-3.0) Basophils (%) (Auto) 0.3 % (0.0-2.0) Sodium Level 138 MMOL/L (136-145) Potassium Level 3.3 MMOL/L (3.5-5.1) L Chloride Level 104 MMOL/L (98-107) Carbon Dioxide Level 27 MMOL/L (21-32) Anion Gap 7 mmol/L (5-15) Blood Urea Nitrogen 10 mg/dL (7-18) Creatinine 0.7 MG/DL (0.55-1.30) Estimat Glomerular Filtration Rate mL/min (>60) Glucose Level 92 MG/DL (74-106) Calcium Level 8.9 MG/DL (8.5-10.1) Phosphorus Level 2.2 MG/DL (2.5-4.9) L Magnesium Level 1.8 MG/DL (1.8-2.4) Total Bilirubin 0.8 MG/DL (0.2-1.0) Aspartate Amino Transf (AST/SGOT) 17 U/L (15-37) Alanine Aminotransferase (ALT/SGPT) 21 U/L (12-78) Alkaline Phosphatase 84 U/L (46-116) C-Reactive Protein, Quantitative 37.8 mg/dL (0.00-0.90) H Pro-B-Type Natriuretic Peptide 7820 pg/mL (0-125) H Total Protein 6.7 G/DL (6.4-8.2) Albumin 2.5 G/DL (3.4-5.0) L Globulin 4.2 g/dL Albumin/Globulin Ratio 0.6 (1.0-2.7) L Arterial Blood pH 7.326 (7.350-7.450) Arterial Blood Partial Pressure CO2 41.3 mmHg (35.0-45.0) Arterial Blood Partial Pressure O2 72.6 mmHg (75.0-100.0) L Arterial Blood HCO3 21.1 mmol/L (22.0-26.0) L Arterial Blood Oxygen Saturation 93.0 % (92.0-98.0) Arterial Blood Base Excess -4.6 Arnel Test Positive Current Medications Medications (Trade) Dose Ordered Sig/Uday Route PRN Reason Start Time Stop Time Status Last Admin Dose Admin Acetaminophen (Tylenol) 500 mg Q6H PRN ORAL Prn Headache/Temp > 101 11/08/17 15:30 12/04/17 09:29 UNV Cefepime HCl 2 gm/ Sodium Chloride 110 ml @ 220 mls/hr Q24H IVPB 11/08/17 21:00 11/15/17 20:59 UNV Heparin Sodium (Porcine) (Heparin 5000 units/ml) 5,000 units EVERY 12 HOURS SUBQ 11/08/17 21:00 12/08/17 09:29 UNV Latanoprost (Xalatan) 1 drop BEDTIME BOTH EYES 11/08/17 21:00 12/05/17 20:59 UNV Levalbuterol HCl (Xopenex) 1.25 mg TIDRT HHN 11/08/17 13:00 11/13/17 12:59 UNV Morphine Sulfate (Morphine Sulfate) 1 mg EVERY HOUR PRN IV For Pain 11/08/17 13:00 11/15/17 12:44 UNV Ondansetron HCl (Zofran) 4 mg Q6H PRN IVP Nausea & Vomiting 11/08/17 15:45 12/04/17 21:44 UNV Pantoprazole (Protonix) 40 mg DAILY ORAL 11/09/17 09:00 12/08/17 09:29 UNV Potassium Phosphate 30 mm/ Sodium Chloride 285 ml @ 47.5 mls/hr ONCE ONCE IV 11/08/17 14:00 11/08/17 19:59 UNV Vancomycin HCl (Vanco rx to dose) 1 ea DAILY PRN MISC Per rx protocol 11/09/17 09:00 12/05/17 10:59 UNV Vancomycin/Sodium Chloride 250 ml @ 166.667 mls/hr Q12HR@0100,1300 IVPB 11/08/17 13:00 11/13/17 00:59 UNV Steve De Leon M.D. Nov 08, 2017 13:31
[2017-11-08] MEDS: Levalbuterol Inh UD 1.25mg/0.5ml HHN SCH ×2 (14:00→20:42)
[2017-11-08] MEDS ORDERED: Potassium Phosphate 30 MM in NS 275 ML IV ONE ×4 (14:00)
[2017-11-08] MEDS ORDERED: Tubing IV Secondary IV ONE ×3 (15:30→20:59)
[2017-11-08] MEDS ORDERED: D5NS 1000ml IV ONE ×2 (15:30→20:59)
--- NOTE | 2017-11-08 18:44 | General Progress Note ---
Progress Note Progress Note d/w DPOa, if pt makes it through tonsong she will be discharged to [facility] in am with hospice care. ANNETTE ANDERSON Nov 08, 2017 18:43
[2017-11-08] MEDS ORDERED: OLANZapine 2.5mg tab ORAL SCH ×2 (21:00)
[2017-11-08] MEDS ORDERED: Latanoprost 0.005% Opth 2.5ml Soln BOTH EYES SCH ×2 (21:00)
[2017-11-08] MEDS ORDERED: Cefepime HCl 2 GM in NS 110 ML IVPB SCH ×4 (21:00)
[2017-11-08] MEDS ORDERED: Cefepime HCl 2 GM in D5W 55 ML IVPB SCH (21:00)
--- NOTE | 2017-11-09 13:49 | Discharge Summary ---
Discharge Summary Hospital Course Date of Admission Nov 04, 2017 at 20:48 Date of Discharge Nov 08, 2017 at 21:00 Admitting Diagnosis HPI Maribell Myers is a 87 year old female who was admitted on Nov 04, 2017 at 20:48 for Pneumonia Hospital Course [id number] Discharge Discharge Disposition Patient Discharge Diagnoses: Maria Isabel Aggarwal NP Nov 09, 2017 13:49
--- NOTE | 2017-11-10 12:54 | Progress Note ---
DATE: 11/08/2017 SUBJECTIVE: The patient was transferred to intensive care unit due to acute respiratory failure. During the evaluation, the patient is anxious and is awake, however noncommunicative, does not answer the questions. MENTAL STATUS EXAMINATION: The patient is alert, disoriented and confused. Mood in neutral during the evaluation, however, tends to be anxious. Affect is flat. Thought process, there is a paucity of thought content. Thought content, no suicidal or homicidal ideation. ASSESSMENT: 1. Encephalopathy. 2. Agitation. PLAN: We will continue current medications. Garrison Viramontes M.D. DR: HANNAH JOB#: [id number] CC:
--- NOTE | 2017-11-10 19:00 | Discharge Summary 2 SIG ---
DATE OF ADMISSION: 11/04/2017 DATE OF DISCHARGE: 11/08/2017 BRIEF SUMMARY: The patient is an 87-year-old female, who was transferred from [facility]. She was noted to have leukocytosis with evidence of pneumonia and urinary tract infection. She was transferred to [facility]. The patient has a past history significant for dementia, psychiatric history, polyneuropathy, ulcers, history of shingles, chronic back pain, osteopenia, vitamin D deficiency, hypothyroidism, hyperlipidemia, hypertension, seizure disorder and glaucoma. She was started empirically on cefepime and vancomycin and was given breathing treatments. She was given DVT prophylaxis with heparin subcutaneous and GI prophylaxis with Protonix. She had a fever and was given Tylenol p.r.n. The patient had episodes of hypotension, possible sepsis. She was given chest physiotherapy. She is a high risk for aspiration. She underwent swallow evaluation. On November 08, 2017, she developed respiratory distress and hypoxia. She was transferred to ICU. Chest x-ray done showed diffuse worsening of bilateral airspace disease. Per discussion with the patient's DPOA, family wished comfort care. The patient was taken out of ICU. Comfort care was provided. The patient eventually . FINAL DIAGNOSES: 1. Healthcare-associated pneumonia. 2. Urinary tract infection. 3. Sepsis. 4. Fever. 5. Hypotension. 6. Methicillin-resistant Staphylococcus aureus colonization. 7. Acute respiratory failure. 8. Major depressive disorder. 9. Comfort care/Palliative care. Robson Montero M.D. I have been assigned to dictate discharge summary on this account and I was not involved in the patient's management. Maria Isabel Aggarwal N.P. DR: CAM JOB#: [id number] CC: [facility]
== END 2017-11-08 21:00 | disposition expired | DRG 871 ==
LOC: 4E 20:48 → 4W 11-05 08:45 → ICU 11-08 08:53 → 4W 11-08 13:04
DX: A41.9 Sepsis, unspecified organism (principal); J18.9 Pneumonia, unspecified organism; J96.00 Acute respiratory failure, unspecified whether with hypoxia or hypercapnia; G93.40 Encephalopathy, unspecified; N39.0 Urinary tract infection, site not specified; F03.90 Unspecified dementia, unspecified severity, without behavioral disturbance, psychotic disturbance, mood disturbance, and anxiety; G62.9 Polyneuropathy, unspecified; Z66 Do not resuscitate; Z51.5 Encounter for palliative care; M85.80 Other specified disorders of bone density and structure, unspecified site; I10 Essential (primary) hypertension; E03.9 Hypothyroidism, unspecified; E78.5 Hyperlipidemia, unspecified; G40.909 Epilepsy, unspecified, not intractable, without status epilepticus; E55.9 Vitamin D deficiency, unspecified; H40.9 Unspecified glaucoma; F32.9 Major depressive disorder, single episode, unspecified; Z22.322 Carrier or suspected carrier of Methicillin resistant Staphylococcus aureus; Y95 Nosocomial condition
CPT/HCPCS: 36415; 36600; 71045; 80053; 80061; 80202; 81001; 82803; 82977; 83036; 83735; 83880; 84100; 84443; 84550; 85025; 86140; 87040; 87070; 87081; 87086; 87181; 87205; 93306; 94640; 94664; 94760; J7620; J8499